=== PATIENT | male | born 1975 | race African-American/Black ===

== ENCOUNTER 2016-11-27 23:51 | Inpatient (IN) ==
[2016-11-28] MEDS ORDERED: hydrALAZINE 20 MG/1 ML VIAL IV STA (01:13)
[2016-11-28] MEDS ORDERED: NITROGLYCERIN 2% OINT 1 INCH/GM PACK TOP STA (01:13)
[2016-11-28] MEDS ORDERED: ASPIRIN 325 MG TABLET PO STA (01:13)
[2016-11-28] MEDS ORDERED: ONDANSETRON 4 MG/2 ML VIAL IV STA (01:13)
[2016-11-28] MEDS ORDERED: MORPHINE 2 MG/1 ML SYRINGE IV STA (01:13)
--- NOTE | 2016-11-28 01:44 | Emergency Department Note ---
Vanesa Conroy Gwan, am scribing for, and in the presence of, Yeison Gillis MD 01 :18. Carlin Conroy Charles R, MD, personally performed the services described in this documentation, ascribed by Denise Alexis in my presence, and it is both accurate and complete . Arrival - Arrival Chief Complaint: Extremity Problem Stated Complaint: foot pain ED Nursing Triage Note: Pt ambulatory to triage with c/o right foot pain. Mode of Arrival: Ambulatory Limitations: No Limitations Source: Patient, Old Records Reviewed, RN Notes Reviewed Time Seen by Provider: 11/28/16 00:55 - History of Present Illness HPI Narrative: Patient is a 41 y/o black male who presents to the ED with a c/o right foot pain with an onset 5 days ago. Patient then stated that today as he was working , his pain became worse. After taking Aleve with no relief, pt was prompted to report to the ED for further evaluation. His associated sxs have been numbness, tingling, burning sensation and edema to bilateral feet-more on right than on the left. Patient confirmed that he has a SHx of marijuana use and cigarettes smoking. He denies any use of Cocain, chest pain or any trauma to LE. He then said that he does not have a PCP or that he has f/u with any physician. During exam, pt showed obvious signs of pain and discomfort but no signs of distress were noted. Consistency: constant Severity: moderate Allergies/Adverse Reactions: Allergies Allergy/AdvReac Type Severity Reaction Status Date / Time lidocaine Allergy Unknown/Unable Verified 11/28/16 00:03 to obtain Home Medications: Home Medications Medication Instructions Recorded Confirmed Type No Known Home Medications [No 11/28/16 11/28/16 History Known Home Medications] Review of System - Review of System 12 point system: reviewed and no additional remarkable complaints except as stated - Review of System Constitutional: Absent: chills, fever Eyes: Absent: discharge, pain Head/Ears/Nose/Throat: Absent: earache Respiratory: Absent: cough Cardiovascular: Absent: chest pain Gastrointestinal: Absent: abdominal pain, nausea, vomiting, diarrhea Genitourinary male: Absent: urgency, dysuria Musculoskeletal: Present: as per HPI, other (pain in right foot ). Absent: arm pain, back pain Skin: Absent: rash, lesions Medical,Surgical,& Family Hx - Medical History Cardio: History of: Hypertension - Social History Smoking Status: Current every day smoker Frequency of Alcohol Use: Occasionally Type of Drug Use: Marijuana Exam Vital Signs: Vital Signs Temperature 97.9 F 11/27/16 23:57 Pulse Rate 80 11/28/16 01:40 Respiratory Rate 16 11/28/16 01:40 Blood Pressure 197/116 11/28/16 01:40 O2 Sat by Pulse Oximetry 96 11/27/16 23:57 - General General appearance: alert, in no apparent distress - Head Head exam: Present: atraumatic, normocephalic - Eye Eye exam: Present: normal appearance, PERRL, EOMI - ENT ENT exam: Present: normal oropharynx, mucous membranes moist, TM's normal bilaterally, normal external ear exam - Neck Neck exam: Present: full ROM, trachea midline. Absent: tenderness - Chest Chest inspection: Present: symmetric chest wall rise. Absent: tenderness - Respiratory Respiratory exam: Present: rales (bilateral ), rhonchi (bilateral ) - Cardiovascular Cardiovascular exam: Present: murmur (3/6 systolic injection murmur) - Extremities Exam Extremities exam: Present: other (3rd right toe is dark, cyanotic, painful and ischemic with clear temperature change; decrease pulses in bilateral feet; +1 edema noted to bilateral LE) - Back Exam Back exam: Present: full ROM. Absent: tenderness - Neurological Exam Neurological exam: Present: alert, oriented X3, CN II-XII intact. Absent: motor sensory deficit - Psychiatric Psychiatric exam: Present: normal affect, normal mood - Skin Skin exam: Present: warm, dry, intact, normal color Course - Consultations Consultation #1: Hospital will admit patient Time: 03:28 Results - Labs CBC & BMP: 11/28/16 01:41 11/28/16 01:41 Lab Results: I have reviewed the patients labs Labs: Laboratory Tests 11/28/16 11/28/16 11/28/16 01:41 01:41 01:41 WBC 9.5 RBC 4.68 Hgb 13.7 L Hct 40.5 L MCV 86.5 L Plt Count 259 [place] # (Auto) 1.1 H Sodium 141 Potassium 4.0 Chloride 108 H Carbon Dioxide 24 BUN 19 H Creatinine 1.10 Glucose 109 H AST 78 H Alkaline Phosphatase 129 H Troponin I 0.428 H Lipase 194.0 Critical Care Time Critical Care Time: Yes Total Critical Care Time: 60 Disposition Clinical Impression: Acute ischemia right third toe, Hypertensive urgency, Elevated troponin, Clubbing of the fingernails, COPD (chronic obstructive pulmonary disease), Peripheral vascular disease Case discussed with: patient Disposition: Still a Patient Condition: Guarded Time of Disposition: 03:24 Contact your physician if you experience:: fever over 101, Difficulty voiding, Redness or swelling, Nausea/Vomiting, Shortness of breath, Bleeding, pain uncontrolled by pain medications, Other Return to the Emergency Department if:: fever over 101, Difficulty voiding, Redness or swelling, Nausea/Vomiting, Shortness of breath, Bleeding, pain uncontrolled by pain medications, Other
[2016-11-28] MEDS ORDERED: NITROGLYCERIN 2% OINT 1 INCH/GM PACK TOP ONE (01:48)
[2016-11-28] MEDS ORDERED: ONDANSETRON 4 MG/2 ML VIAL ONE (01:49)
[2016-11-28] MEDS ORDERED: hydrALAZINE 20 MG/1 ML VIAL ONE (01:49)
[2016-11-28] MEDS ORDERED: ASPIRIN 325 MG TABLET ONE (01:49)
[2016-11-28] MEDS ORDERED: MORPHINE 2 MG/1 ML SYRINGE ONE (01:49)
[2016-11-28 02:00] LABS: Basophils % 0.3 % (0.0-0.8); Eosinophils # 0.2 10*3/uL (0.0-0.87); Eosinophils % 1.6 % (0.00-10.9); Hematocrit 40.5 VOL% (42.0-52.0); Hemoglobin 13.7 GM/DL (14.0-18.0); Immature Granulocytes % 0.3 %; Immature Granulocytes Absolute 0.03 #; Lymphocytes # 3.5 10*3/uL (1.4-4.0); Lymphocytes % 37.1 % (21.2-54.2); Mean Corpuscular HGB Conc 33.8 GM/DL (32-36); Mean Corpuscular Hemoglobin 29 PG (27-34); Mean Corpuscular Volume 86.5 FL (87-102); Mean Platelet Volume 9.9 FL (9.6-12.0); Monocytes # 1.1 10*3/uL (0.11-0.8); Monocytes % 11.9 % (1.7-12.7); Neutrophils # 4.6 10*3/uL (1.4-7.4); Neutrophils % 48.8 % (38.7-73.9); Platelet Count 259 T/CUMM (130-400); Red Blood Count 4.68 MC/CUMM (3.8-5.5); Red Cell Distribution Width 13.2 % (9.3-17.3); White Blood Count 9.5 T/CUMM (4-12)
[2016-11-28 02:05] LABS: PT Patient Result 10.5 SECS
[2016-11-28 02:15] LABS: Alanine Aminotransferase 42 U/L (16-61); Albumin 3.8 G/DL (3.4-5.0); Alkaline Phosphatase 129 U/L (45-117); Aspartate Amino Transferase 78 U/L (0-37); Bilirubin,Total < 0.39 MG/DL (0.2-1.0); Blood Urea Nitrogen 19 MG/DL (7-18); Calcium 8.7 MG/DL (8.5-10.1); Glucose 109 MG/DL (74-106); Magnesium 2.4 MG/DL (1.8-2.4); Osmolality,Calculated 283.3 MOS/KG (273-304); Sodium 141 MMOL/L (136-145)
--- NOTE | 2016-11-28 03:57 | Hospitalist History & Physical ---
Assessment and Plan (1) Necrotic toes Status: Acute Current Visit: Yes (2) Hypertensive urgency Status: Acute Current Visit: Yes (3) Elevated troponin Status: Acute Current Visit: Yes (4) Peripheral vascular disease Status: Acute Assessment and plan: We will admit patient our service. He will be placed on a monitored bed. I will consult cardiology and trend out his cardiac enzymes. They are mildly bumped. Going to have some as needed medication available for his blood pressure and start him on some p.o. medication. We will consult surgery for his necrotic toe. We will hold him n.p.o. for now Current Visit: Yes History of Present Illness Chief complaint: Toe pain History of present illness: Mr. Grant is a 41 year old male with past medical history significant for hypertension and medical noncompliance presents with a five-day history of fourth toe pain. Patient denies trauma. Patient reports that at times very painful. On admission to the ER patient was found to have an accelerated blood pressure. Patient complains about a numbness sensation in his foot. I was consulted to admit the patient. Home Medications Medication Instructions Recorded Confirmed Type No Known Home Medications [No 11/28/16 11/28/16 History Known Home Medications] Allergies Allergy/AdvReac Type Severity Reaction Status Date / Time lidocaine Allergy Unknown/Unable Verified 11/28/16 00:03 to obtain Medical,Surgical,& Family Hx - Medical History Cardio: History of: Hypertension - Surgical History Orthopedic Surgeries: Surgical HX of;: Orthopedic Surgery - Family History Family History: Reports;: Family Diabetes, Family Hypertension - Social History Smoking Status: Current every day smoker Frequency of Alcohol Use: Occasionally Type of Drug Use: Marijuana 12 point system: reviewed and no additional remarkable complaints except as stated Exam - Constitutional Vitals: Period Temp Pulse Resp BP Sys/Kimball Pulse Ox Last 24 Hr 97.9 F 80-90 16-18 183-197/116-123 96 General appearance: no acute distress - Head Head exam: Present: normal inspection - Eye Eye exam: Present: EOMI Pupils: Present: CELSO - ENT ENT exam: Present: normal exam - Neck Neck exam: Present: normal inspection - Respiratory Respiratory exam: Present: clear to auscultation bilaterally - Cardiovascular Cardiovascular exam: Present: systolic murmur - GI/Abdominal GI/Abdominal exam: Present: normal bowel sounds - Extremities Exam Extremities exam: Present: other (Patient's forthright toe is cyanotic. Patient has some mild edema bilaterally. Pulses seem diminished in his lower extremities) - Neurological Exam Neurological exam: Present: alert - Psychiatric Psychiatric exam: Present: normal affect - Skin Skin exam: Present: warm, dry, intact Results - Labs CBC & BMP: 11/28/16 01:41 11/28/16 01:41
[2016-11-28] MEDS ORDERED: ONDANSETRON 4 MG/2 ML VIAL IV PRN (04:03)
[2016-11-28] MEDS: SODIUM CHLORIDE 0.9% 1,000 ML IV SCH ×2 (04:54→18:14)
--- NOTE | 2016-11-28 06:36 | XRay Report ---
Referring Physician: Yeison Gillis Exam: XR chest 1V portable Date: November 28, 2016 at 1:20 AM Reason: Chest pain Comparison: None Findings: The cardiac silhouette is upper normal in size. No focal consolidation, pneumothorax or pleural effusion is identified. No acute osseous process is seen. Impression: No acute cardiopulmonary process is identified. PROCEDURE INTERPRETED AT [facility] DEPARTMENT OF RADIOLOGY Final Report Signed by: Dr. Aaliyah Draper
--- NOTE | 2016-11-28 06:39 | XRay Report ---
Referring Physician: Yeison Gillis Exam: XR right toes 3 views Date: November 28, 2016 at 1:21 AM Reason: Right toe pain Comparison: None Findings: There is irregularity of the fourth distal phalanx and soft tissue swelling at the fourth digit. This is concerning for osteomyelitis. Other considerations include an indeterminate age fracture, but osteomyelitis is favored. The remaining visualized osseous structures appear intact. Impression: There is soft tissue swelling at the fourth digit and irregularity at the fourth distal phalanx. This is concerning for osteomyelitis. Other considerations include an indeterminate age fracture. PROCEDURE INTERPRETED AT [facility] DEPARTMENT OF RADIOLOGY Final Report Signed by: Dr. Aaliyah Draper
[2016-11-28 07:39] LABS: Basophils % 0.4 % (0.0-0.8); Eosinophils # 0.2 10*3/uL (0.0-0.87); Eosinophils % 2.1 % (0.00-10.9); Hemoglobin 14.5 GM/DL (14.0-18.0); Immature Granulocytes % 0.4 %; Immature Granulocytes Absolute 0.04 #; Lymphocytes # 4.3 10*3/uL (1.4-4.0); Lymphocytes % 40.5 % (21.2-54.2); Mean Corpuscular HGB Conc 33.7 GM/DL (32-36); Mean Corpuscular Hemoglobin 29 PG (27-34); Mean Corpuscular Volume 86.9 FL (87-102); Mean Platelet Volume 10.9 FL (9.6-12.0); Monocytes # 1.1 10*3/uL (0.11-0.8); Monocytes % 10.7 % (1.7-12.7); Neutrophils # 4.9 10*3/uL (1.4-7.4); Neutrophils % 45.9 % (38.7-73.9); Platelet Count 291 T/CUMM (130-400); Red Blood Count 4.95 MC/CUMM (3.8-5.5); Red Cell Distribution Width 13.2 % (9.3-17.3); White Blood Count 10.6 T/CUMM (4-12)
[2016-11-28 08:02] LABS: Burr Cells 2+; Hypochromasia 1+; Lymphocytes 55 % (20-55); Platelet Estimate Adequate; Segmented Neutrophils 35 % (50-85); Total Cells Counted 100
[2016-11-28 08:24] LABS: Alanine Aminotransferase 33 U/L (16-61); Albumin 3.5 G/DL (3.4-5.0); Alkaline Phosphatase 116 U/L (45-117); Aspartate Amino Transferase 64 U/L (0-37); Bilirubin,Total < 0.39 MG/DL (0.2-1.0); Calcium 8.1 MG/DL (8.5-10.1); Total Protein 6.3 G/DL (6.4-8.3)
[2016-11-28 08:25] LABS: Blood Urea Nitrogen 13 MG/DL (7-18); Glucose 100 MG/DL (74-106); Osmolality,Calculated 278.4 MOS/KG (273-304); Potassium 3.9 MMOL/L (3.5-5.1); Sodium 140 MMOL/L (136-145)
--- NOTE | 2016-11-28 08:55 | EKG Report ---
Stationary ECG Study [facility] ER Test Date: 11/28/2016 4:19:41 AM Pat Name: ARBEN DAY Department: Room: 545 Gender: M Data Solutions Architect: VINCENT : 1975 Requested by: Yeison Calle Order Number: [id number] Reading MD: ISABELLA FRAUSTO Intervals [place] Rate: 79 P: 60 AK: 154 QRS: -16 QRSD: 114 T: 208 QT: 424 QTc: 458 Interpretive Statements SINUS RHYTHM MODERATE INTRAVENTRICULAR CONDUCTION DELAY Repol changes suggestive of myocardial injury, recent Electronically Signed On 11-30-16 15:37:12 CDT by ISABELLA FRAUSTO [email or web address]
--- NOTE | 2016-11-28 09:10 | EKG Report ---
Stationary ECG Study [facility] Test Date: 11/28/2016 9:09:16 AM Pat Name: ARBEN DAY Department: Room: 545 Gender: M Behavioral Health Clinician: : 1975 Requested by: Yeison Calle Order Number: [id number] Reading MD: ISABELLA FRAUSTO Intervals [place] Rate: 73 P: 64 VT: 157 QRS: 24 QRSD: 95 T: 247 QT: 443 QTc: 469 Interpretive Statements SINUS RHYTHM MARKED T-WAVE ABNORMALITY, CONSIDER LATERAL ISCHEMIA MARKED T-WAVE ABNORMALITY, CONSIDER INFERIOR ISCHEMIA Electronically Signed On 11-30-16 15:54:42 CDT by ISABELLA FRAUSTO [email or web address]
[2016-11-28] MEDS: PANTOPRAZOLE 40 MG TABLET PO SCH (09:13)
[2016-11-28] MEDS: amLODIPine 5 MG TABLET PO SCH (09:13)
[2016-11-28 11:38] LABS: CKMB % 0.4 %; Troponin I Only 0.35 NG/ML (0.00-0.045)
[2016-11-28] MEDS: MORPHINE 2 MG/1 ML SYRINGE IV PRN ×2 (12:10→23:21)
--- NOTE | 2016-11-28 12:14 | General Surgery Consult Note ---
Assessment and Plan - Time spent with patient Time spent with patient: Less than 30 minutes (1) Necrotic toes Status: Acute Assessment and plan: This toe appears viable. I would be worried about blue toe syndrome with emboli from peripheral vascular disease upstream or possibly cardiac emboli. I would recommend an aortofemoral arteriogram and also a cardiac echo. I will check today to see if we can get an arteriogram. His creatinine is normal. Current Visit: Yes History of Present Illness Chief complaint: Painful right fourth toe History of present illness: Mr. Grant is a 41 year old male Who 5 days ago developed sudden onset of pain in his right fourth toe and forefoot. His pain is mostly localized to the toe itself. He has not had any redness or swelling or fever. This is worse if it is touched or if he tries to walk on it. Feels better if he lays still. He has never had claudication before. He is unaware of any history of peripheral vascular disease or embolic phenomena. Home Medications Medication Instructions Recorded Confirmed Type No Known Home Medications [No 11/28/16 11/28/16 History Known Home Medications] Allergies Allergy/AdvReac Type Severity Reaction Status Date / Time lidocaine Allergy Unknown/Unable Verified 11/28/16 00:03 to obtain Medical,Surgical,& Family Hx - Medical History Cardio: History of: Hypertension - Surgical History Orthopedic Surgeries: Surgical HX of;: Orthopedic Surgery (1988) - Family History Family History: Reports;: Family Diabetes, Family Hypertension - Social History Smoking Status: Current every day smoker Frequency of Alcohol Use: Occasionally Type of Drug Use: Marijuana - Constitutional Constitutional: Absent: anorexia, chills, fever(s), weight loss - Cardiovascular Cardiovascular: Absent: chest pain at rest, chest pain with activity, dyspnea, dyspnea on exertion, syncope - Respiratory Respiratory: Absent: dyspnea, hemoptysis, dyspnea on exertion - Gastrointestinal Gastrointestinal: Absent: abdominal pain, hematemesis, hematochezia, nausea, vomiting, jaundice - Genitourinary Genitourinary: Absent: hematuria - Musculoskeletal Musculoskeletal: Absent: back pain - Neurological Neurological: Absent: focal weakness, syncope - Endocrine Endocrine: Absent: polyuria Hematologic/Lymphatic: Absent: easy bruising Exam - Constitutional Vitals: Period Temp Pulse Resp BP Sys/Kimball Pulse Ox Last 24 Hr 97.9 F-98.2 F 66-90 16-18 137-197/83-123 96-99 General appearance: no acute distress - Head Head exam: Present: normocephalic - Eye Eye exam: Absent: scleral icterus - ENT Mouth exam: Present: normal voice - Neck Neck exam: Present: trachea midline. Absent: tenderness - Respiratory Respiratory exam: Present: clear to auscultation bilaterally. Absent: accessory muscle use - Cardiovascular Cardiovascular exam: Present: RRR - GI/Abdominal GI/Abdominal exam: Present: soft, other (No abdominal bruit). Absent: distended , mass, tenderness, rebound - Extremities Exam Extremities exam: Present: normal inspection, other (There is some cyanosis and edema of the right fourth toe. There is no obvious trauma or erythema or obvious infection. Some of this tenderness extends into the forefoot proximal to the toe.). Absent: calf tenderness, edema - Back Exam Back exam: Absent: CVA tenderness (L), CVA tenderness (R) - Neurological Exam Neurological exam: Present: alert, oriented X3. Absent: motor sensory deficit Speech: Present: normal - Skin Skin exam: Present: normal color Results - Labs CBC & BMP: 11/28/16 04:33 11/28/16 07:50 Lab Results: I have reviewed the past 24 hour labs
--- NOTE | 2016-11-28 13:53 | CT Report ---
Exam: CT angio abdomen/femoral Date: 11/28/2016 Comparison: None Indication: Peripheral vascular disease with blue toe right fourth digit Technical: Images were obtained from the lung bases through the iliac crest continuation through the abdomen/ pelvis to the toes with sagittal axial and coronal imaging available for review. 3-D Maximal intensity reproduction images are available for review. 125 cc of Omnipaque 350 were utilized.Dose reduction was performed with decreasing kv and mA and automated exposure Total DLP: 898.4 mGy*cm Findings: CT angiogram: Abdomen/pelvis. The distal thoracic aorta is unremarkable. The abdominal aorta reveals patency of the celiac hepatic and splenic artery. The SMA is intact. The renal arteries are patent bilaterally. There are inferior mesenteric arteries patent. No obvious aneurysm with mild luminal fibrofatty plaque present in the distal aorta. The right common iliac reveals atherosclerotic plaque without significant stenosis. The left common iliac reveals atherosclerotic plaque with approximately 50% narrowing of the left common iliac artery. The left and right external iliac arteries are patent. The internal iliac arteries reveal mild plaque. Right lower extremity: The right common femoral profundus femoris arteries are patent. The right SFA reveals approximately 50% narrowing in the proximal origin of the right SFA. The exam reveals some luminal irregularity irregularities in the distal SFA had. There is a complete occlusion of the popliteal artery with collateral blood flow minimally present through the geniculate vessels. The anterior tibial artery is reconstituted to supply the dorsalis pedis artery. Peroneal artery is intact the posterior tibial artery is small but patent to the medial plantar branch of the foot. Left lower extremity: The left common femoral artery is intact. The profundus femoris artery is patent. The left SFA is occluded with reconstitution at the level of the adductor canal. The popliteal artery is occluded. There is some collateral blood flow through geniculate vessels to reconstitute the tibioperoneal trunk with patency of the anterior tibial artery with some luminal irregularities with patent dorsalis pedis artery. The peroneal artery is small but patent and the posterior tibial artery has some skip lesions present. The medial plantar branch the foot is patent. Soft tissue analysis: Lung bases: No obvious infiltrate or effusion present with pleural thickening in the right lung base. Liver and Spleen: Unremarkable Gallbladder and Pancreas: Unremarkable Adrenals: Unremarkable Kidneys: Both kidneys are equally perfused and demonstrate no evidence for obstructive uropathy. Stomach: Incomplete distended with air-fluid and debris Retroperitoneum: No enlarged lymph nodes. IVC appears unremarkable Bowel and Mesentery: Moderate stool and debris present. A few diverticular changes are present without evidence of diverticulitis. Pelvis: Bladder: Incompletely distended with fluid Fluid: No free fluid identified. Lymph nodes: Small shotty nodes in the inguinal regions bilaterally Pelvic organs: Unremarkable Osseous structures: Old injury of the left femoral neck present with the defect with old fracture of the left femur and some old metallic screws present x3 in the left femur. Impression: 1. 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 2. Complete occlusion of the left SFA proximally with reconstitution at the adductor canal with occlusion of the left popliteal artery also present with skip lesions in the posterior tibial artery with a skip lesion also present in the anterior and peroneal artery 3. Moderate luminal irregularities in the aorta with approximately 50% narrowing of the left common iliac artery with mild irregularities in the internal iliac arteries bilaterally 4. Approximately 50% narrowing of the proximal right SFA common femoral artery junction 5. Previous fracture of the left hip and femur with 3 small cannulated screws in the femur midshaft. Findings discussed with Dr. Wright III PROCEDURE INTERPRETED AT [facility] DEPARTMENT OF RADIOLOGY Final Report Signed by: Dr. Jeb Smalls
--- NOTE | 2016-11-28 14:54 | Vascular Surgery Consult Note ---
History of Present Illness Chief complaint: ischemic, infected right 4th toe History of present illness: Mr. Grant is a 41 year old male Mr. Grant a 41-year-old man admitted with an acutely painful swollen right fourth toe with pain spreading into the third and fifth toes. He states this became much worse approximately 5 days ago and then 2 days ago it required his attention coming to the emergency room. He has a long history of cigarette smoking he has a past history in the of some type of cartilage and tendon repair on the right knee and a past history of sounds like a DVT in the right calf. However he has been able to walk and get along without a great deal of claudication he does have cramping that occurs more at night and during the day. He does not give a history of any other major medical problems and apparently does not see a physician on a regular basis. He was admitted underwent CT angiography which is significant showing a totally occluded right popliteal to the trifurcation with reconstitution of anterior tibial into the dorsalis pedis a small posterior tibial region dating lower in the leg that goes to the plantar arch. Significantly on the left side he has totally occluded left superficial femoral and popliteal and worse tibial vessels. X-ray of his foot shows absorption breakdown of the distal phalanx of the right fourth toe which is the most symptomatic and suggest possibility of osteomyelitis. On my examination he clearly has a dark but very swollen right fourth toe that is acutely tender as is the surrounding toes and metatarsal area but the upper part of the foot is not as tender notably perfusion seems to be about as good on the right as on the left other than the fourth toe. At this point, Mr. Grant clearly has peripheral vascular disease that is significant not convinced that that is the primary source of his discomfort with the fourth toe. I am concerned that infection is the primary problem although another possibility could be gout. I discussed this with Dr. Wright III I think it would be appropriate to drain the fourth toe but the patient is just eaten today he has not been on antibiotics yet so I will make him n.p.o. after midnight will start vancomycin I will also check a urate level. I did explain to the patient with his present that the continued use of cigarettes is the worst possible thing he can do as far as his peripheral vascular disease is concerned and must be made a priority for him going forward to stop the use of cigarettes Home Medications Medication Instructions Recorded Confirmed Type No Known Home Medications [No 11/28/16 11/28/16 History Known Home Medications] Allergies Allergy/AdvReac Type Severity Reaction Status Date / Time lidocaine Allergy Unknown/Unable Verified 11/28/16 00:03 to obtain Medical,Surgical,& Family Hx - Medical History Cardio: History of: Hypertension - Surgical History Orthopedic Surgeries: Surgical HX of;: Orthopedic Surgery (1988) - Family History Family History: Reports;: Family Diabetes, Family Hypertension - Social History Smoking Status: Current every day smoker Frequency of Alcohol Use: Occasionally Type of Drug Use: Marijuana Exam - Constitutional Vitals: Period Temp Pulse Resp BP Sys/Kimball Pulse Ox Last 24 Hr 97.9 F-98.2 F 66-90 16-18 137-197/83-123 96-99 Results - Labs CBC & BMP: 11/28/16 04:33 11/28/16 07:50
--- NOTE | 2016-11-28 15:34 | Hospitalist Progress Note ---
Assessment and Plan (1) Osteomyelitis Status: Acute Assessment and plan: Suspicion of osteomyelitis of the distal phalanx of the right fourth toe. This shows resumption. Differential diagnoses includes gouty arthritis. I will check uric acid because of this. She had been started on vancomycin Current Visit: Yes (2) Hypertensive urgency Status: Acute Assessment and plan: Blood pressure is now better controlled. Quite high in the emergency room. Current Visit: Yes (3) Peripheral vascular disease Status: Chronic Assessment and plan: Vascular surgery has left a note on the chart.. Nothing can be done for him at this point given the nature of his arterial occlusion and lower extremities Current Visit: Yes (4) Necrotic toes Status: Acute Assessment and plan: General surgery look with the patient again tomorrow Current Visit: Yes Hospitalist: Subjective Interval history: Patient is seen interviewed and examined and chart has been reviewed. Adrienne was admitted area this morning by my colleagues. Admitted with hospital with progressive pain in the fourth toe. On the right foot. States that she started about 5 days ago. Patient has profound PAD involving both lower extremity also on the left than the right. He has been consulted to general surgery and also to vascular surgery because of suspicion for possibility of atheroembolic event. CT of the lower extremity has been done. This demonstrated significant PAD. Discussed surgery is osteopenia and that is not possible for this to be on cholesterol emboli it may be loss of collaterals with ischemia in that area but there is strong suspicion that this is an infection there is resumption of the distal phalanx of fourth toe. Gouty arthritis cannot be excluded. Because of suspicion of infection patient will be started on vancomycin. Surgery will evaluate the patient again tomorrow hospital incision and drainage. Exam - Constitutional Vitals: Period Temp Pulse Resp BP Sys/Kimball Pulse Ox Last 24 Hr 97.9 F-98.2 F 66-90 16-18 137-197/83-123 96-99 General appearance: normal weight - Head Head exam: Present: normal inspection, normocephalic - Eye Eye exam: Present: EOMI Pupils: Present: CELSO - ENT ENT exam: Present: normal exam - Neck Neck exam: Present: normal inspection - Respiratory Respiratory exam: Present: clear to auscultation bilaterally - Cardiovascular Cardiovascular exam: Present: regular rate and rhythm - GI/Abdominal GI/Abdominal exam: Present: normal bowel sounds - Extremities Exam Extremities exam: Present: full ROM, other (Very tender dorsum of the right foot very tender fourth toe which is dusky and swollen.) - Back Exam Back exam: Present: normal inspection - Neurological Exam Neurological exam: Present: alert, oriented X3, CN II-XII intact - Psychiatric Psychiatric exam: Present: normal affect, normal mood - Skin Skin exam: Present: normal color, warm, dry Results - Labs CBC & BMP: 11/28/16 04:33 11/28/16 07:50 Lab Results: I have reviewed the past 24 hour labs (Check uric acid)
[2016-11-28] MEDS: ENOXAPARIN 40 MG/0.4 ML SYRINGE SUBCUT SCH (16:17)
[2016-11-28] MEDS: VANCOMYCIN INJ 1,500 MG in SODIUM CHLORIDE 0.9% 500 ML IV SCH (16:18)
--- NOTE | 2016-11-28 21:00 | Cardiology Consult Note ---
Champ Conroy Vanessa, RN, am scribing for, and in the presence of, Cody Dial MD 20:59. Assessment and Plan - Time spent with patient Time spent with patient: Greater than 30 minutes (Due to assessment, planning, document addition, and medication review) (1) Troponin I above reference range Status: Acute Assessment and plan: SEE PLAN OF CARE LISTED BELOW. Current Visit: Yes (2) Hypertensive urgency Status: Acute Assessment and plan: SEE PLAN OF CARE LISTED BELOW. Current Visit: Yes (3) COPD (chronic obstructive pulmonary disease) Status: Chronic Assessment and plan: SEE PLAN OF CARE LISTED BELOW. Current Visit: Yes (4) Necrotic toes Status: Acute Assessment and plan: SEE PLAN OF CARE LISTED BELOW. Current Visit: Yes (5) Peripheral vascular disease Status: Chronic Assessment and plan: SEE PLAN OF CARE LISTED BELOW. 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 CODY DIAL ([facility]) PCP: NONE CARDIOLOGY CONSULT NOTE: ABNORMAL TROPONIN MEASUREMENT, PVD, RIGHT LOWER EXTREMITY ISCHEMIA Mr. Grant is a 41 year old black male with risk factors significant for hypertension, family history of coronary artery disease, tobacco abuse. He has never had formal cardiac evaluation. Patient does not routinely take medication for hypertension, but he did present this admission with hypertensive urgency, BP 183/123. There is no documented past medical history, and patient denies knowledge with the exception of "heart murmur in childhood" and DVT of the right leg 4 years ago for which he took Coumadin for 4 months. Family history positive for father with hypertension, paternal grandfather who at age 50 from heart attack and paternal uncle who at age 70 from heart attack. Social history includes smoking one half pack per day cigarettes for approximately 29 years, admits to smoking marijuana 5-6 times per month, and reports that he drinks approximately a six pack of beer weekly. Patient presented to [place]'s ED overnight on November 28 complaining of pain in his right foot onset 5 days prior. He does carpentry work for a living, and he reports that as he went on through the day, his pain became worse and was unrelieved after taking NSAIDs. He had associated numbness, tingling, and burning sensation with some bilateral pedal edema greater on the right than the left. He denied any recent trauma to the lower extremities. He was experiencing a significant amount of pain. Right third toe found to be ischemic , and there are peripheral vascular changes to bilateral lower extremities. Patient was admitted to [facility] [place] via [facility] for further observation and treatment. Cardiology is consulted for further evaluation of troponin level 2 0.428 and 0.360. The patient acknowledges that he believed he was having a heart attack 2 nights ago when he had severe chest pain. This awoke him from his sleep. He cannot describe the duration. There did not appear to have been any associated symptoms, no clear triggers or alleviators. He may have been short of breath with this episode as well. He had recurrent chest pain denied he presented to the emergency room, but he describes this as an entire body cramping on that side of his whole body that included his chest. He was able to perform carpentry work after the more severe episode 2 nights ago. We discussed his history of medication noncompliance. Apparently, when he was treating his hypertension with lisinopril, he read and inserted said his medicine was not "for black people", so he stopped this. He says he improved his eating so he did not return for further follow-up. He did not continue to check his blood pressure. He really has not had any contraindication to any medications or side effects from them. He tells me he would be agreeable to taking medications at this point if prescribed. Chest x-ray showed no acute cardiopulmonary process and no significant cardiomegaly, but during physical exam patient is noted to have significant clubbing of fingers, suggestive of COPD. EKG with mild ST depression inferiorly , T-wave inversion inferolaterally. Troponin level still remained flat, BNP not elevated. Blood pressure did remain elevated through the night as high as 197/116. This morning, it is improved to 137/84. Pulse rate 70s-80s and regular. Creatinine is 0.9 with GFR of 157. Upon exam and interview, patient is resting in bed quietly in no acute distress. Denies recent or current orthopnea, PND, palpitations. ASSESSMENT/PLAN: 1. ABNORMAL TROPONIN -this could represent residual abnormality from an event that occurred 2 nights ago when he had severe chest pain. It could also represent mild RV strain from a possible pulmonary embolism since he has a history of DVTs. We will check an echocardiogram, CT scan of the chest to rule out PE. At some point he may require cardiac catheterization if he can confirm intention for medication compliance. In the meanwhile we will medically optimize him. He is agreeable to taking antihypertensives at this point. He may require urgent surgery to debride his toe, and that urgent surgery does not necessarily need to be postponed because of his cardiac condition given his clinical scenario. 2. ABNORMAL EKG 3. HYPERTENSIVE URGENCY 5. TOBACCO ABUSE 6. PERIPHERAL VASCULAR DISEASE CC: Dallas Mejía MD - Home Medications and Allergies Home Medications: Home Medications Medication Instructions Recorded Confirmed Type No Known Home Medications [No 11/28/16 11/28/16 History Known Home Medications] Allergies/Adverse Reactions: Allergies Allergy/AdvReac Type Severity Reaction Status Date / Time lidocaine Allergy Unknown/Unable Verified 11/28/16 00:03 to obtain - Constitutional Constitutional: Present: as per HPI - EENT Eyes: Present: as per HPI Nose, mouth and throat: Present: as per HPI - Cardiovascular Cardiovascular: Present: as per HPI - Respiratory Respiratory: Present: as per HPI - Gastrointestinal Gastrointestinal: Present: as per HPI - Genitourinary Genitourinary: Present: as per HPI - Musculoskeletal Musculoskeletal: Present: as per HPI - Neurological Neurological: Present: as per HPI - Psychiatric Psychiatric: Present: as per HPI - Endocrine Endocrine: Present: as per HPI - Hematologic/Lymphatic Hematologic/Lymphatic: Present: as per HPI Medical,Surgical,& Family Hx - Medical History Cardio: History of: Hypertension No history of: CHF, CAD, [place], Pacemaker Psychological: No history of: Anxiety Disorders, Depression Neurology: No history of: Seizures, TIA Endocrine: No history of: Diabetes Mellitus (IDDM), Diabetes Mellitus (NIDDM), Dyslipidemia, Thyroid Disorder Rheumatology: No history of;: Gout Respiratory: No history of: Obstructive Sleep Apnea, Pulmonary Hypertension Renal: No history of: Renal Problems Genitourinary: No history of: Bladder Problem, Kidney Stones Gastrointestinal: No history of: GERD, Gastrointestinal Bleed Musculoskeletal: No history of: Amputation, Degenerative Disk Disease Hematology: History of: Clotting Problems (DVT right leg) No history of: Anemia, Bleeding Problems Other: No history of: Cancer, HIV - Surgical History Cardiac Surgeries: Patient Denies: Femoral-Popliteal Bypass Graft, Cardiac Surgery HEENT Surgeries: Patient denies: Carotid Endarterectomy Abdominal Surgeries: Patient denies: Colonoscopy, EGD Orthopedic Surgeries: Surgical HX of;: Orthopedic Surgery (1988) - Family History Family History: Reports;: Family Diabetes, Family Heart Disease, Family Hypertension, Family Stroke - Social History Smoking Status: Current every day smoker Frequency of Alcohol Use: Occasionally Type of Drug Use: Marijuana Functional capacity: independent ambulation Physical Examination Vital Signs Temp Pulse Resp BP Pulse Ox 97.9 F 90 18 183/123 96 11/27/16 23:57 11/27/16 23:57 11/27/16 23:57 11/27/16 23:57 11/27/16 23:57 Other: General appearance: normal weight, no acute distress - Head Head exam: Present: normal inspection, normocephalic, atraumatic. Absent: hematoma, laceration - Eye Eye exam: Present: EOMI. Absent: conjunctival injection, nystagmus, periorbital swelling, scleral icterus, laceration to eyelids Pupils: Present: PERRL. Absent: constricted, dilated, fixed, irregular, unequal - ENT ENT exam: Present: normal exam, normal external ear exam - Neck Neck exam: Present: normal inspection. Absent: lymphadenopathy, meningismus, tenderness, thyromegaly - Respiratory Respiratory exam: Present: clear to auscultation bilaterally. Absent: accessory muscle use, chest wall tenderness - Cardiovascular Cardiovascular exam: Present: regular rate and rhythm. Absent: carotid bruit, gallop, JVD, rubs - GI/Abdominal GI/Abdominal exam: Present: normal bowel sounds, soft. Absent: distended, firm , guarding, hernia, mass, tenderness, rebound. - Extremities Exam Extremities exam: Present: Digital clubbing, decreased pulses in the bilateral lower extremities, very mild edema of the bilateral feet, worse with the right- sided toes, exquisite tenderness on this foot - Back Exam Back exam: Present: normal inspection. Absent: muscle spasm, vertebral tenderness - Neurological Exam Neurological exam: Present: alert, oriented X3, grossly intact without resting or intention tremor - Psychiatric Psychiatric exam: Present: normal affect, normal mood - Skin Skin exam: Present:warm, dry, intact. Absent: rash, urticaria Result/EKG - Labs CBC & BMP: 11/28/16 04:33 11/28/16 07:50 Lab Results: I have reviewed the past 24 hour labs Labs: Laboratory Results - last 24 hr 11/28/16 11/28/16 11/28/16 01:41 01:41 01:41 WBC RBC Hgb Hct MCV MCH MCHC RDW Plt Count MPV Neut % (Auto) Lymph % (Auto) Hutchinson % (Auto) Eos % (Auto) Baso % (Auto) Neut # (Auto) Lymph # (Auto) Hutchinson # (Auto) Eos # (Auto) Baso # (Auto) Total Counted Immature Gran % Nucleated RBC % Immature Gran # Segmented Neutrophils Lymphocytes Monocytes Nucleated RBCs # Platelet Estimate Hypochromasia Evan Cells INR 1.0 PT Patient/Control Mix 10.5 Sodium 141 Potassium 4.0 Chloride 108 H Carbon Dioxide 24 Anion Gap 13.0 BUN 19 H Creatinine 1.10 GFR Calculation 125 BUN/Creatinine Ratio 17.00 Glucose 109 H Calculated Osmolality 283.3 Calcium 8.7 Magnesium 2.4 Total Bilirubin < 0.39 AST 78 H ALT 42 Alkaline Phosphatase 129 H Troponin I B-Natriuretic Peptide 99 Total Protein 7.0 Albumin 3.8 Globulin 3.2 Albumin/Globulin Ratio 1.1 Lipase 194.0 11/28/16 11/28/16 11/28/16 01:41 01:41 04:33 WBC 9.5 10.6 RBC 4.68 4.95 Hgb 13.7 L 14.5 Hct 40.5 L 43.0 MCV 86.5 L 86.9 L MCH 29 29 MCHC 33.8 33.7 RDW 13.2 13.2 Plt Count 259 291 MPV 9.9 10.9 Neut % (Auto) 48.8 45.9 Lymph % (Auto) 37.1 40.5 Hutchinson % (Auto) 11.9 10.7 Eos % (Auto) 1.6 2.1 Baso % (Auto) 0.3 0.4 Neut # (Auto) 4.6 4.9 Lymph # (Auto) 3.5 4.3 H Hutchinson # (Auto) 1.1 H 1.1 H Eos # (Auto) 0.2 0.2 Baso # (Auto) 0.0 0.0 Total Counted 100 Immature Gran % 0.3 0.4 Nucleated RBC % 0.0 0.0 Immature Gran # 0.03 0.04 Segmented Neutrophils 35 L Lymphocytes 55 Monocytes 10 Nucleated RBCs # 0.00 0.00 Platelet Estimate Adequate Hypochromasia 1+ Royal Cells 2+ INR PT Patient/Control Mix Sodium Potassium Chloride Carbon Dioxide Anion Gap BUN Creatinine GFR Calculation BUN/Creatinine Ratio Glucose Calculated Osmolality Calcium Magnesium Total Bilirubin AST ALT Alkaline Phosphatase Troponin I 0.428 H B-Natriuretic Peptide Total Protein Albumin Globulin Albumin/Globulin Ratio Lipase 11/28/16 11/28/16 11/28/16 04:35 07:50 07:59 WBC RBC Hgb Hct MCV MCH MCHC RDW Plt Count MPV Neut % (Auto) Lymph % (Auto) Hutchinson % (Auto) Eos % (Auto) Baso % (Auto) Neut # (Auto) Lymph # (Auto) Hutchinson # (Auto) Eos # (Auto) Baso # (Auto) Total Counted Immature Gran % Nucleated RBC % Immature Gran # Segmented Neutrophils Lymphocytes Monocytes Nucleated RBCs # Platelet Estimate Hypochromasia Evan Cells INR PT Patient/Control Mix Sodium 140 Potassium 3.9 Chloride 110 H Carbon Dioxide 22 Anion Gap 11.9 BUN 13 Creatinine 0.90 GFR Calculation 157 BUN/Creatinine Ratio 14.00 Glucose 100 Calculated Osmolality 278.4 Calcium 8.1 L Magnesium Total Bilirubin < 0.39 AST 64 H ALT 33 Alkaline Phosphatase 116 Troponin I 0.448 H 0.360 H B-Natriuretic Peptide Total Protein 6.3 L Albumin 3.5 Globulin 2.8 Albumin/Globulin Ratio 1.2 Lipase - Diagnostic Findings Procedure: Chest x-ray: image reviewed by me, report reviewed by me - EKG EKG results: interpreted by me EKG shows: sinus rhythm Jayro Conroy Jennifer, MD, personally performed the services described in this documentation, ascribed by Annette Oakes RN in my presence, and it is both accurate and complete .
[2016-11-28] MEDS: ZALEPLON 5 MG CAPSULE PO PRN (22:02)
--- NOTE | 2016-11-28 22:06 | CT Report ---
History: Chest pain. History of DVT Date: 11/28/2016 Study: CT chest with IV contrast with pulmonary embolus technique Comparison exam: No previous similar Spiral CT sections were obtained through the lungs following the IV administration of 80 mL of Omnipaque 350 without immediate complication. Multiplanar reconstruction images are also evaluated. The CT exam was performed using one or more of the following dose reduction techniques: Automated exposure control, adjustment of the mA and/or kV according to patient size, or use of iterative reconstruction technique. There is no discrete filling defect within the pulmonary arterial tree to suggest acute pulmonary embolic disease. There is no thoracic aortic aneurysm or dissection. 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 There is no pleural or pericardial effusion. There is no discrete pulmonary mass or confluent pulmonary infiltrate. There are some changes of paraseptal emphysema in the upper lung zones, right more than left. There is some mild AP window and subcarinal lymphadenopathy with lymph nodes measuring 15 mm short axis diameter. The partially visualized upper abdomen is unremarkable. 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 Jodi Toribio
[2016-11-28] MEDS: hydrALAZINE 20 MG/1 ML VIAL IV PRN (23:21)
[2016-11-29] MEDS: VANCOMYCIN INJ 1,500 MG in SODIUM CHLORIDE 0.9% 500 ML IV SCH ×2 (03:30→15:21)
[2016-11-29 06:51] LABS: Magnesium 2.5 MG/DL (1.8-2.4); Osmolality,Calculated 279.3 MOS/KG (273-304); Potassium 4.4 MMOL/L (3.5-5.1); Uric Acid 5.9 MG/DL (3.5-7.2)
[2016-11-29] MEDS: PANTOPRAZOLE 40 MG TABLET PO SCH (08:28)
[2016-11-29] MEDS: amLODIPine 5 MG TABLET PO SCH ×2 (08:28→09:53)
[2016-11-29] MEDS: SODIUM CHLORIDE 0.9% 1,000 ML IV SCH (08:28)
[2016-11-29] MEDS: MORPHINE 2 MG/1 ML SYRINGE IV PRN (08:33)
--- NOTE | 2016-11-29 09:21 | General Surgery Progress Note ---
Assessment and Plan (1) Necrotic toes Status: Acute Assessment and plan: This toe appears viable. I would be worried about blue toe syndrome with emboli from peripheral vascular disease upstream or possibly cardiac emboli. I would recommend an aortofemoral arteriogram and also a cardiac echo. I will check today to see if we can get an arteriogram. His creatinine is normal. 11/29: I discussed this case with Dr. Gil and he is raised the question of whether or not there is infection in this toe. It is unclear on exam whether this is infectious or ischemic. I have offered exploration of the toe to see if there is any pus to drain. This toe may not be viable anyway. Discussed the possibility of amputation as well. Patient is agreeable to amputation if I feel that it is necessary intraoperatively. I have seen that he has a ventricular aneurysm on CT scan and I will discuss this with cardiology. I would question whether this could be a source of emboli. I would think with an occluded popliteal artery that it would be difficult to embolize to his toe though us this could be a possibility. I think that it is important that we remove the possibility of infection out of the picture especially if he is going to require a bypass procedure and possibly placement of prosthetic material. The procedure risks were discussed with the patient and he wishes to proceed. Current Visit: Yes Subjective Patient reports: Present: still having pain. Absent: nausea, vomiting, fever Exam - Constitutional Vitals: Period Temp Pulse Resp BP Sys/Kimball Pulse Ox Last 24 Hr 97.8 F-98.9 F 66-87 17-19 141-160/54-109 99-100 General appearance: no acute distress - Head Head exam: Present: normocephalic - Eye Eye exam: Absent: scleral icterus - Respiratory Respiratory exam: Absent: accessory muscle use - Extremities Exam Extremities exam: Present: other (His right fourth toe is edematous and exquisitely tender. There is no crepitus.). Absent: edema Results - Labs CBC & BMP: 11/28/16 04:33 11/29/16 05:22 Lab Results: I have reviewed the past 24 hour labs - Diagnostic Findings Procedure: CT - chest: image reviewed by me, report reviewed by me
[2016-11-29] MEDS ORDERED: LABETALOL 100 MG/20 ML VIAL IV ONE (10:55)
[2016-11-29] MEDS ORDERED: KETOROLAC 30 MG/1 ML VIAL ONE (10:55)
[2016-11-29] MEDS ORDERED: ONDANSETRON 4 MG/2 ML VIAL ONE ×2 (10:55→12:05)
[2016-11-29] MEDS ORDERED: PROPOFOL 200 MG/20 ML VIAL IV ONE (10:55)
--- NOTE | 2016-11-29 11:27 | Operative Note ---
Date of procedure: 11/29/16 Pre-op diagnosis: Abscess right fourth toe Post-op diagnosis: same Procedure: Incision and drainage of abscess right fourth toe Findings and technique: After informed consent was obtained the patient was brought to the operating room and placed in supine position. After IV sedation was administered plain lidocaine was administered. Patient had listed an allergy to lidocaine upon questioning this sounded like a response from epinephrine and lidocaine with dental procedures. This was injected proximal to the toe and a transverse incision made over an area of fluctuance at the dorsal aspect of the toe. There was purulent fluid and this appeared to be limited to the subcutaneous space. This was over the IP joint but I could not see evidence any evidence of extension into the IP joint or obvious osteomyelitis at this point. This was irrigated and packed open with iodoform gauze. The patient wanted to avoid an amputation if possible. It is unclear if this time was salvageable without amputation. We will discuss this further postoperatively. At this point however this should help control any potential infection. His x-ray is indeterminate regarding osteomyelitis but this is suggestive of osteomyelitis in the distal phalanx Anesthesia: MAC, local Surgeon / Physician: Oziel Wright III. Estimated blood loss: minimal Specimens: other (Cultures) Condition: stable Disposition: PACU Results - Labs CBC & BMP: 11/28/16 04:33 11/29/16 05:22 Discharge Plan - Discharge Medications No Action No Known Home Medications [No Known Home Medications] - Follow Up or Referral - Forms/Instructions
--- NOTE | 2016-11-29 11:31 | Anesthesia Post-Op ---
Anesthesia Post OP - Post Ansesthetic Evaluation Patient seen in post op: Yes Resp: within normal limits CV: within normal limits Mental: within normal limits Temp: within normal limits [id number]: within normal limits Nausea and Vomiting: within normal limits Pain: within normal limits
[2016-11-29] MEDS ORDERED: fentaNYL 100 MCG/2 ML VIAL ONE (11:40)
[2016-11-29] MEDS ORDERED: MIDAZOLAM 2 MG/2 ML VIAL ONE ×2 (11:40)
--- NOTE | 2016-11-29 11:48 | Hospitalist Progress Note ---
Assessment and Plan - Time spent with patient Time spent with patient: Less than 30 minutes (1) Hypertensive urgency Status: Acute Assessment and plan: Blood pressures fairly well controlled. Continue current medical regimen. Current Visit: Yes (2) Elevated troponin Status: Acute Assessment and plan: Patient been evaluated by cardiology. Appreciate your assistance. Troponins have been trending down. CT chest reveals no evidence of pulmonary emboli. Current Visit: Yes (3) Necrotic toes Status: Acute Assessment and plan: Continuing IV antibiotics. Patient has been evaluated by vascular and general surgery. Patient went to the OR this morning for I&D of the toe. Current Visit: Yes Hospitalist: Subjective Interval history: Patient is now in the room postop. He is lethargic but arousable and has no complaints. Exam - Constitutional Vitals: Period Temp Pulse Resp BP Sys/Kimball Pulse Ox Last 24 Hr 97.8 F-98.9 F 66-87 17-19 141-160/54-109 99-100 General appearance: no acute distress - Head Head exam: Present: normocephalic, atraumatic - Eye Eye exam: Present: EOMI Pupils: Present: CELSO - ENT ENT exam: Present: normal exam - Neck Neck exam: Present: normal inspection - Respiratory Respiratory exam: Present: clear to auscultation bilaterally - Cardiovascular Cardiovascular exam: Present: regular rate and rhythm - GI/Abdominal GI/Abdominal exam: Present: normal bowel sounds, soft. Absent: mass, tenderness - Extremities Exam Extremities exam: Present: other (Dressing to right foot). Absent: calf tenderness - Back Exam Back exam: Present: normal inspection - Neurological Exam Neurological exam: Present: alert, oriented X3, CN II-XII intact. Absent: motor sensory deficit - Psychiatric Psychiatric exam: Present: normal affect, normal mood. Absent: agitated, anxious - Skin Skin exam: Present: warm, dry. Absent: rash Results - Labs CBC & BMP: 11/28/16 04:33 11/29/16 05:22 Lab Results: I have reviewed the past 24 hour labs - Diagnostic Findings Procedure: CT - chest: report reviewed by me
[2016-11-29] MEDS ORDERED: hydrALAZINE 20 MG/1 ML VIAL ONE (11:58)
[2016-11-29] MEDS ORDERED: hydrALAZINE 20 MG/1 ML VIAL IV ONE (12:01)
[2016-11-29] MEDS ORDERED: ONDANSETRON 4 MG/2 ML VIAL IV ONE (12:02)
[2016-11-29] MEDS: HYDROmorphone 2 MG/1 ML VIAL IV PRN ×3 (12:04→12:14)
[2016-11-29] MEDS ORDERED: HYDROmorphone 2 MG/1 ML VIAL ONE (12:05)
[2016-11-29] MEDS ORDERED: GLUCAGON 1 MG VIAL IM PRN (13:23)
[2016-11-29] MEDS ORDERED: DEXTROSE 50% 25 GM/50 ML VIAL IV PRN (13:23)
--- NOTE | 2016-11-29 14:31 | ECHO Report ---
Kaushal Grant Exam Date: 11/29/2016 10:46 Referring Physician: Technologist: Park Murcia Age: 41 Ht (in): Wt (lb): Gender: M Exam Location: [facility] Echo Indications: HTN, elevvated troponin, COPD, PVD BP: 146 / 81 HR: 66 Rhythm: Sinus Technical Quality: Poor IMPRESSIONS Mildly reduced LV systolic function with regional wall motion as described below. Grade 2/4 diastolic dysfunction. Mild to moderate concentric left ventricular hypertrophy. Trace mitral and pulmonic regurgitation. MEASUREMENTS (Male / Female) Normal Values 2D ECHO LV Diastolic Diameter PLAX 3.5 cm 4.2 - 5.9 / 3.9 - 5.3 cm LV Systolic Diameter PLAX 2.8 cm LV Fractional Shortening PLAX 21.5 % IVS Diastolic Thickness 1.3 cm 0.6 - 1.0 / 0.6 - 0.9 cm LVPW Diastolic Thickness 1.5 cm 0.6 - 1.0 / 0.6 - 0.9 cm RV Internal Dim ED PLAX 2.9 cm Aortic Root Diameter 2.6 cm LA Systolic Diameter LX 3.9 cm 3.0 - 4.0 / 2.7 - 3.8 cm FINDINGS Left Ventricle Mildly increased septal wall thickness. Mild concentric left ventricular hypertrophy with diastolic dysfunction. Overall systolic function is suspected to be mildly reduced, 45-50%. There is suboptimal endocardial resolution which hinders regional wall motion assessment. The anterior septum appears somewhat akinetic, the apex is hypokinetic or akinetic, and the inferior wall may also be akinetic. Right Ventricle Normal right ventricular size. Right Atrium Normal right atrial size. Left Atrium Normal left atrial size. Mitral Valve Mild mitral valve sclerosis. Trace mitral valve regurgitation. Aortic Valve Mild aortic valve sclerosis. Tricuspid Valve Morphologically normal tricuspid valve. Pulmonic Valve Pulmonic valve not well visualized. Trace pulmonary valve regurgitation. Pericardium No pericardial effusion. Aorta Normal size aortic root and proximal ascending aorta. Isabel Dial MD (Electronically Signed) Final Date: 29 Nov 2016 14:20
--- NOTE | 2016-11-29 15:57 | Cardiology Progress Note ---
Assessment and Plan (1) Troponin I above reference range Status: Acute Assessment and plan: SEE PLAN OF CARE LISTED BELOW. Current Visit: Yes (2) COPD (chronic obstructive pulmonary disease) Status: Chronic Assessment and plan: SEE PLAN OF CARE LISTED BELOW. Current Visit: Yes (3) Necrotic toes Status: Acute Assessment and plan: SEE PLAN OF CARE LISTED BELOW. Current Visit: Yes (4) Peripheral vascular disease Status: Chronic Assessment and plan: SEE PLAN OF CARE LISTED BELOW. Current Visit: Yes (5) Abnormal ECG Status: Chronic Current Visit: Yes (6) Hypertension Status: Chronic Current Visit: Yes Cardiology - PN: Subj Interval history: PRIMARY [employer] PR[employer] ASSOCIATE: DR. CODY CABELLO (NEW) PCP: NONE CARDIOLOGY CONSULT NOTE: ABNORMAL TROPONIN MEASUREMENT, PVD, RIGHT LOWER EXTREMITY ISCHEMIA Summary: Mr. Grant is a 41 year old black male with history of tobacco use, hypertension with medication noncompliance, "murmur in childhood", DVT in the remote past. He was admitted with right toe/foot pain. He has been identified as having severe peripheral vascular disease of the bilateral lower extremities. There is some suspicion of possible osteomyelitis involving the right fourth toe as well. He underwent incision and drainage. He was also found to have minimally elevated troponins and an abnormal ECG which prompted cardiology consultation. He acknowledged experiencing significant chest pain approximately 2 days prior to arrival and there is some suspicion that he may have a late presentation Of a myocardial infarction. November 29, 2016: I ordered a CT scan of the chest to rule out pulmonary embolism given his history of DVT with now a mildly elevated troponin and recent chest pain. No pulmonary embolism was identified. However, there is some suspicion that he may have an apical pseudoaneurysm. If there is LV infarction, particularly at the apex, with some flow abnormality this can be a set up for possible apical thrombus. This could be contributing to his acute presentation. Echocardiogram was performed, and overall there is suboptimal image quality. I cannot definitively identify any significant structural abnormality of the apex, but it is suboptimally seen. Overall the systolic function appeared to be preserved, there may be inferior wall hypokinesis but it is not clear. Clinically, the patient has had recurrent symptom of what he calls cramping in his chest, and certain positional maneuvers seem to alleviate this. His breathing is unaffected. Blood pressures been uncontrolled. He is now status post incision and drainage of the affected right fourth toe. He is feeling much better since this occurred. ASSESSMENT/PLAN: 1. ABNORMAL TROPONIN -this could represent residual abnormality from an event that occurred 2 nights prior to admission when he had severe chest pain. CT of the chest revealed a possible pseudoaneurysm of the LV apex which would be consistent with a transmural infarction at some point. He is having atypical chest pain symptoms which could represent postinfarct angina, although they seem to be muscle cramps. I am going to repeat the echocardiogram with a focused study to evaluate the LV and try to determine whether or not he may have an LV thrombus. I also think he would likely benefit from viability study prior to proceeding with left heart catheterization, which would also let us know about a possible transmural infarction. This cannot be initiated until Thursday when nuclear is back in the hospital and staffed. He may require cardiac catheterization. At the very least he will need to be treated with aspirin. 2. ABNORMAL EKG 3. Abnormal echocardiogram. 4. Hypertension-uncontrolled. History of noncompliance. We will advance his antihypertensive regimen. 5. TOBACCO ABUSE-merits and techniques of cessation have been addressed. 6. PERIPHERAL VASCULAR DISEASE Exam (Progress Note) - Constitutional Vitals: Period Temp Pulse Resp BP Sys/Kimball Pulse Ox Last 24 Hr 97.8 F-98.9 F 66-87 16-19 135-175/54-115 96-100 Exam: General appearance: normal weight, no acute distress - Head Head exam: Present: normal inspection, normocephalic, atraumatic. Absent: hematoma, laceration - Eye Eye exam: Present: EOMI. Absent: conjunctival injection, nystagmus, periorbital swelling, scleral icterus, laceration to eyelids Pupils: Present: PERRL. Absent: constricted, dilated, fixed, irregular, unequal - ENT ENT exam: Present: normal exam, normal external ear exam - Neck Neck exam: Present: normal inspection. Absent: lymphadenopathy, meningismus, tenderness, thyromegaly - Respiratory Respiratory exam: Present: clear to auscultation bilaterally. Absent: accessory muscle use, chest wall tenderness - Cardiovascular Cardiovascular exam: Present: regular rate and rhythm. Absent: carotid bruit, gallop, JVD, rubs - GI/Abdominal GI/Abdominal exam: Present: normal bowel sounds, soft. Absent: distended, firm , guarding, hernia, mass, tenderness, rebound. - Extremities Exam Extremities exam: Present: The right foot has a surgical dressing, there are decreased pulses that are not readily palpable bilaterally in the posterior tibialis distribution. Absent: calf tenderness, edema - Back Exam Back exam: Present: normal inspection. Absent: muscle spasm, vertebral tenderness - Neurological Exam Neurological exam: Present: alert, oriented X3, grossly intact without resting or intention tremor - Psychiatric Psychiatric exam: Present: normal affect, normal mood - Skin Skin exam: Present: normal color, warm, dry, intact. Absent: cyanosis, diaphoretic, rash, urticaria Result/EKG - Labs CBC & BMP: 11/28/16 04:33 11/29/16 05:22 Lab Results: I have reviewed the past 24 hour labs Labs: Laboratory Results - last 24 hr 11/29/16 11/29/16 05:22 05:22 ESR Westergren 33 H Sodium 141 Potassium 4.4 Chloride 109 H Carbon Dioxide 22 Anion Gap 14.4 BUN 11 Creatinine 0.80 GFR Calculation 165 BUN/Creatinine Ratio 13.00 Glucose 104 Calculated Osmolality 279.3 Uric Acid 5.9 Calcium 9.0 Magnesium 2.5 H - EKG EKG results: interpreted by me, sinus rhythm (Inferior and lateral T-wave inversion), no acute changes
[2016-11-29] MEDS: ENOXAPARIN 40 MG/0.4 ML SYRINGE SUBCUT SCH (16:00)
[2016-11-29] MEDS: ZALEPLON 5 MG CAPSULE PO PRN (23:42)
[2016-11-30] MEDS: SODIUM CHLORIDE 0.9% 1,000 ML IV SCH ×2 (01:00→13:37)
[2016-11-30] MEDS: hydrALAZINE 20 MG/1 ML VIAL IV PRN ×2 (04:00→17:19)
[2016-11-30] MEDS: VANCOMYCIN INJ 1,500 MG in SODIUM CHLORIDE 0.9% 500 ML IV SCH ×2 (05:00→16:50)
[2016-11-30] MEDS: amLODIPine 10 MG TABLET PO SCH (08:55)
[2016-11-30] MEDS: PANTOPRAZOLE 40 MG TABLET PO SCH (08:55)
--- NOTE | 2016-11-30 10:00 | Event Note ---
He feels a little better and has less tight pain in his toe. He is afebrile. His dressing is dry. We are awaiting cultures. There did appear to be infection on the dorsal aspect of this toe. He also has a component of chronic vascular disease which is being addressed by Dr. Landers who will be back tomorrow.
--- NOTE | 2016-11-30 10:18 | Hospitalist Progress Note ---
Assessment and Plan - Time spent with patient Time spent with patient: Less than 30 minutes (1) Hypertensive urgency Status: Acute Assessment and plan: Blood pressures fairly well controlled. Continue current medical regimen. Current Visit: Yes (2) Elevated troponin Status: Acute Assessment and plan: Patient been evaluated by cardiology. Appreciate your assistance. Troponins have been trending down. CT chest reveals no evidence of pulmonary emboli. 11/30/16: Continued evaluation by cardiology. Appreciate Dr. Melendez's input. Current Visit: Yes (3) Necrotic toes Status: Acute Assessment and plan: Continuing IV antibiotics. Patient has been evaluated by vascular and general surgery. Patient went to the OR this morning for I&D of the toe. 11/30/16: Continuing IV antibiotics and local wound care. Awaiting culture results. Appreciate general and vascular surgical input. Current Visit: Yes Hospitalist: Subjective Interval history: Mr. Grant is doing better. He continues to have some pain in his right foot but states it is much improved. He denies any chest pain, shortness breath, palpitations, nausea or vomiting. Exam - Constitutional Vitals: Period Temp Pulse Resp BP Sys/Kimball Pulse Ox Last 24 Hr 97.8 F-98.9 F 70-84 16-18 135-190/83-115 96-100 General appearance: no acute distress - Head Head exam: Present: normocephalic, atraumatic - Eye Eye exam: Present: EOMI Pupils: Present: CELSO - ENT ENT exam: Present: normal exam - Neck Neck exam: Present: normal inspection - Respiratory Respiratory exam: Present: clear to auscultation bilaterally. Absent: rales - Cardiovascular Cardiovascular exam: Present: regular rate and rhythm - GI/Abdominal GI/Abdominal exam: Present: normal bowel sounds, soft. Absent: mass, tenderness - Extremities Exam Extremities exam: Present: other (Dressing to the right foot). Absent: calf tenderness - Neurological Exam Neurological exam: Present: alert, oriented X3, CN II-XII intact. Absent: motor sensory deficit - Psychiatric Psychiatric exam: Present: normal affect, normal mood. Absent: agitated, anxious - Skin Skin exam: Present: warm, dry. Absent: erythema Results - Labs CBC & BMP: 11/28/16 04:33 11/29/16 05:22
--- NOTE | 2016-11-30 15:20 | Cardiology Progress Note ---
Assessment and Plan (1) Troponin I above reference range Status: Acute Assessment and plan: SEE PLAN OF CARE LISTED BELOW. Current Visit: Yes (2) COPD (chronic obstructive pulmonary disease) Status: Chronic Assessment and plan: SEE PLAN OF CARE LISTED BELOW. Current Visit: Yes (3) Necrotic toes Status: Acute Assessment and plan: SEE PLAN OF CARE LISTED BELOW. Current Visit: Yes (4) Peripheral vascular disease Status: Chronic Assessment and plan: SEE PLAN OF CARE LISTED BELOW. Current Visit: Yes (5) Abnormal ECG Status: Chronic Current Visit: Yes (6) Hypertension Status: Chronic Current Visit: Yes Cardiology - PN: Subj Interval history: PRIMARY [employer] SUPERINTENDENT: None PCP: NONE CARDIOLOGY CONSULT NOTE: ABNORMAL TROPONIN MEASUREMENT, PVD, RIGHT LOWER EXTREMITY ISCHEMIA Summary: Mr. Grant is a 41 year old black male with history of tobacco use, hypertension with medication noncompliance, "murmur in childhood", DVT in the remote past. He was admitted with right toe/foot pain. He has been identified as having severe peripheral vascular disease of the bilateral lower extremities. There is some suspicion of possible osteomyelitis involving the right fourth toe as well. He underwent incision and drainage. He was also found to have minimally elevated troponins and an abnormal ECG which prompted cardiology consultation. He acknowledged experiencing significant chest pain approximately 2 days prior to arrival and there is some suspicion that he may have a late presentation Of a myocardial infarction. November 29, 2016: I ordered a CT scan of the chest to rule out pulmonary embolism given his history of DVT with now a mildly elevated troponin and recent chest pain. No pulmonary embolism was identified. However, there is some suspicion that he may have an apical pseudoaneurysm. If there is LV infarction, particularly at the apex, with some flow abnormality this can be a set up for possible apical thrombus. This could be contributing to his acute presentation. Echocardiogram was performed, and overall there is suboptimal image quality. I cannot definitively identify any significant structural abnormality of the apex, but it is suboptimally seen. Overall the systolic function appeared to be preserved, there may be inferior wall hypokinesis but it is not clear. Clinically, the patient has had recurrent symptom of what he calls cramping in his chest, and certain positional maneuvers seem to alleviate this. His breathing is unaffected. Blood pressures been uncontrolled. He is now status post incision and drainage of the affected right fourth toe. He is feeling much better since this occurred. November 30, 2016: Clinically he seems to be doing well. No chest pain, shortness of breath. His right foot pain is improved overall. No edema. Blood pressures improved, still uncontrolled. ASSESSMENT/PLAN: 1. ABNORMAL TROPONIN -this could represent residual abnormality from an event that occurred 2 nights prior to admission when he had severe chest pain. CT of the chest revealed a possible pseudoaneurysm of the LV apex which would be consistent with a transmural infarction at some point. He is having atypical chest pain symptoms which could represent postinfarct angina, although they seem to be muscle cramps. I am going to repeat the echocardiogram with a focused study to evaluate the LV and try to determine whether or not he may have an LV thrombus. I also think he would likely benefit from viability study prior to proceeding with left heart catheterization, which would also let us know about a possible transmural infarction. This cannot be initiated until Thursday when nuclear is back in the hospital and staffed. He may require cardiac catheterization. At the very least he will need to be treated with aspirin. 2. ABNORMAL EKG 3. Abnormal echocardiogram. 4. Hypertension-uncontrolled. History of noncompliance. We will advance his antihypertensive regimen. 5. TOBACCO ABUSE-merits and techniques of cessation have been addressed. 6. PERIPHERAL VASCULAR DISEASE Exam (Progress Note) - Constitutional Vitals: Period Temp Pulse Resp BP Sys/Kimball Pulse Ox Last 24 Hr 98 F-98.9 F 75-84 18-19 150-190/83-94 96-99 Exam: General appearance: normal weight, no acute distress - Head Head exam: Present: normal inspection, normocephalic, atraumatic. Absent: hematoma, laceration - Eye Eye exam: Present: EOMI. Absent: conjunctival injection, nystagmus, periorbital swelling, scleral icterus, laceration to eyelids Pupils: Present: PERRL. Absent: constricted, dilated, fixed, irregular, unequal - ENT ENT exam: Present: normal exam, normal external ear exam - Neck Neck exam: Present: normal inspection. Absent: lymphadenopathy, meningismus, tenderness, thyromegaly - Respiratory Respiratory exam: Present: clear to auscultation bilaterally. Absent: accessory muscle use, chest wall tenderness - Cardiovascular Cardiovascular exam: Present: regular rate and rhythm. Absent: carotid bruit, gallop, JVD, rubs - GI/Abdominal GI/Abdominal exam: Present: normal bowel sounds, soft. Absent: distended, firm , guarding, hernia, mass, tenderness, rebound. - Extremities Exam Extremities exam: Present: The right foot has a surgical dressing, there are decreased pulses that are not readily palpable bilaterally in the posterior tibialis distribution. Absent: calf tenderness, edema - Back Exam Back exam: Present: normal inspection. Absent: muscle spasm, vertebral tenderness - Neurological Exam Neurological exam: Present: alert, oriented X3, grossly intact without resting or intention tremor - Psychiatric Psychiatric exam: Present: normal affect, normal mood - Skin Skin exam: Present: normal color, warm, dry, intact. Absent: cyanosis, diaphoretic, rash, urticaria Result/EKG - Labs CBC & BMP: 11/28/16 04:33 11/29/16 05:22 Lab Results: I have reviewed the past 24 hour labs
[2016-11-30] MEDS: ENOXAPARIN 40 MG/0.4 ML SYRINGE SUBCUT SCH (16:50)
[2016-11-30] MEDS: ASPIRIN EC 325 MG TABLET PO SCH (16:50)
[2016-11-30] MEDS: CARVEDILOL 6.25 MG TABLET PO SCH (20:43)
[2016-12-01] MEDS: MORPHINE 2 MG/1 ML SYRINGE IV PRN ×4 (04:25→21:25)
[2016-12-01] MEDS: SODIUM CHLORIDE 0.9% 1,000 ML IV SCH ×2 (05:20→17:29)
[2016-12-01] MEDS: VANCOMYCIN INJ 1,500 MG in SODIUM CHLORIDE 0.9% 500 ML IV SCH ×2 (05:20→16:24)
[2016-12-01 05:59] LABS: Basophils % 0.2 % (0.0-0.8); Eosinophils # 0.1 10*3/uL (0.0-0.87); Eosinophils % 1.5 % (0.00-10.9); Hemoglobin 13.9 GM/DL (14.0-18.0); Immature Granulocytes % 0.6 %; Immature Granulocytes Absolute 0.05 #; Lymphocytes # 2.3 10*3/uL (1.4-4.0); Lymphocytes % 28.2 % (21.2-54.2); Mean Corpuscular HGB Conc 33.1 GM/DL (32-36); Mean Corpuscular Hemoglobin 28 PG (27-34); Mean Corpuscular Volume 85.7 FL (87-102); Mean Platelet Volume 9.8 FL (9.6-12.0); Monocytes # 0.9 10*3/uL (0.11-0.8); Monocytes % 11.4 % (1.7-12.7); Neutrophils # 4.7 10*3/uL (1.4-7.4); Neutrophils % 58.1 % (38.7-73.9); Platelet Count 286 T/CUMM (130-400); Red Cell Distribution Width 12.9 % (9.3-17.3); White Blood Count 8.1 T/CUMM (4-12)
[2016-12-01 06:22] LABS: Calcium 8.7 MG/DL (8.5-10.1); Magnesium 2.4 MG/DL (1.8-2.4); Osmolality,Calculated 277.5 MOS/KG (273-304); Potassium 4.3 MMOL/L (3.5-5.1)
--- NOTE | 2016-12-01 06:46 | Event Note ---
He feels well but continues to have pain in his fourth toe. The toe still has exquisite tenderness at the distal part of the toe. There is no tenderness or abnormality that I can appreciate in his forefoot and his other toes. I had a long discussion with the patient and explained that he probably has an underlying osteomyelitis. We discussed his options including prolonged IV antibiotic therapy which may or may not be successful especially in light of his ischemia with his foot or going ahead and doing an amputation. The patient desires amputation because of the continued pain in his toe when he would like relief from it. I did explain that there is a risk associated with the surgery of nonhealing of his wound especially with his underlying vascular disease. He would like to go ahead and proceed today because of the pain associated with this toe. Procedure and risk of been explained and he wishes to proceed
--- NOTE | 2016-12-01 09:11 | Event Note ---
I have reviewed the findings with Dr. Kyle Villarreal and agree with going ahead with amputation of the fourth toe and then we can address attempted reperfusion if we see that this is clearly not going to heal.
--- NOTE | 2016-12-01 09:12 | Hospitalist Progress Note ---
Assessment and Plan - Time spent with patient Time spent with patient: Less than 30 minutes (1) Hypertensive urgency Status: Acute Assessment and plan: Blood pressures fairly well controlled. Continue current medical regimen. 12/01/16: Blood pressures remained slightly elevated. Will make any further adjustments as needed and in accord with cardiology recommendations. Current Visit: Yes (2) Elevated troponin Status: Acute Assessment and plan: Patient been evaluated by cardiology. Appreciate your assistance. Troponins have been trending down. CT chest reveals no evidence of pulmonary emboli. 11/30/16: Continued evaluation by cardiology. Appreciate Dr. Melendez's input. 12/01/16: Continued evaluation by cardiology. Deferred to their recommendations. Current Visit: Yes (3) Necrotic toes Status: Acute Assessment and plan: Continuing IV antibiotics. Patient has been evaluated by vascular and general surgery. Patient went to the OR this morning for I&D of the toe. 11/30/16: Continuing IV antibiotics and local wound care. Awaiting culture results. Appreciate general and vascular surgical input. 12/01/16: Continuing IV antibiotics and local wound care. He after discussion with Dr. Wright III has decided to proceed with amputation. Current Visit: Yes Hospitalist: Subjective Interval history: Patient continues to have pain in his foot. It is noted that Dr. Kyle Villarreal plans to take him to the OR today for amputation. He denies any chest pain, shortness breath, nausea, vomiting. Exam - Constitutional Vitals: Period Temp Pulse Resp BP Sys/Kimball Pulse Ox Last 24 Hr 97.8 F-98.8 F 75-95 18-19 131-177/78-101 97-100 General appearance: no acute distress - Head Head exam: Present: normocephalic, atraumatic - Eye Eye exam: Present: EOMI Pupils: Present: CELSO - ENT ENT exam: Present: normal exam - Neck Neck exam: Present: normal inspection - Respiratory Respiratory exam: Present: clear to auscultation bilaterally - Cardiovascular Cardiovascular exam: Present: regular rate and rhythm - GI/Abdominal GI/Abdominal exam: Present: normal bowel sounds, soft. Absent: mass, tenderness - Extremities Exam Extremities exam: Present: other (Dressing to right foot) - Back Exam Back exam: Present: normal inspection - Neurological Exam Neurological exam: Present: alert, oriented X3, CN II-XII intact. Absent: motor sensory deficit - Psychiatric Psychiatric exam: Present: normal affect, normal mood. Absent: agitated, anxious - Skin Skin exam: Present: warm. Absent: dry Results - Labs CBC & BMP: 12/01/16 05:31 12/01/16 05:31 Lab Results: I have reviewed the past 24 hour labs
[2016-12-01] MEDS: ASPIRIN EC 325 MG TABLET PO SCH (09:26)
[2016-12-01] MEDS: PANTOPRAZOLE 40 MG TABLET PO SCH (09:32)
[2016-12-01] MEDS: CARVEDILOL 6.25 MG TABLET PO SCH ×2 (09:32→20:15)
[2016-12-01] MEDS: amLODIPine 10 MG TABLET PO SCH (09:32)
--- NOTE | 2016-12-01 10:41 | Cardiology Progress Note ---
Jose J Conroy April RN, am scribing for, and in the presence of, Isabel Dial MD 10:41. Assessment and Plan (1) Necrotic toes Status: Acute Current Visit: Yes (2) Troponin I above reference range Status: Acute Current Visit: Yes (3) Abnormal ECG Status: Chronic Current Visit: Yes (4) COPD (chronic obstructive pulmonary disease) Status: Chronic Current Visit: Yes (5) Hypertension Status: Chronic Current Visit: Yes (6) Peripheral vascular disease Status: Chronic Current Visit: Yes Cardiology - PN: Subj Interval history: PRIMARY LUMBER BUYER: None PCP: NONE CARDIOLOGY CONSULT NOTE: ABNORMAL TROPONIN MEASUREMENT, PVD, RIGHT LOWER EXTREMITY ISCHEMIA Summary: Mr. Grant is a 41 year old black male with history of tobacco use, hypertension with medication noncompliance, "murmur in childhood", DVT in the remote past. He was admitted with right toe/foot pain. He has been identified as having severe peripheral vascular disease of the bilateral lower extremities. There is some suspicion of possible osteomyelitis involving the right fourth toe as well. He underwent incision and drainage. He was also found to have minimally elevated troponins and an abnormal ECG which prompted cardiology consultation. He acknowledged experiencing significant chest pain approximately 2 days prior to arrival and there is some suspicion that he may have a late presentation Of a myocardial infarction. November 29, 2016: I ordered a CT scan of the chest to rule out pulmonary embolism given his history of DVT with now a mildly elevated troponin and recent chest pain. No pulmonary embolism was identified. However, there is some suspicion that he may have an apical pseudoaneurysm. If there is LV infarction, particularly at the apex, with some flow abnormality this can be a set up for possible apical thrombus. This could be contributing to his acute presentation. Echocardiogram was performed, and overall there is suboptimal image quality. I cannot definitively identify any significant structural abnormality of the apex, but it is suboptimally seen. Overall the systolic function appeared to be preserved, there may be inferior wall hypokinesis but it is not clear. Clinically, the patient has had recurrent symptom of what he calls cramping in his chest, and certain positional maneuvers seem to alleviate this. His breathing is unaffected. Blood pressures been uncontrolled. He is now status post incision and drainage of the affected right fourth toe. He is feeling much better since this occurred. November 30, 2016: Clinically he seems to be doing well. No chest pain, shortness of breath. His right foot pain is improved overall. No edema. Blood pressures improved, still uncontrolled. December 01, 2016: Mr. Grant reports some discomfort that he describes as "cramping " in his chest. He states this pain he has been having periodically. He has to stretch out to relieve this cramping and this maneuver seems to work. He denies any shortness of breath, palpitations, or dizziness. His blood pressure continues to be elevated, this morning it is 158/100. He had a 6 beat run of what looks like may be VTach this morning. awake overnight monitor currently shows sinus rhythm with heart rates in the 70's. He is scheduled for amputation of the fourth toe on his right foot with Dr. Wright today. ASSESSMENT/PLAN: 1. ABNORMAL TROPONIN -this could represent residual abnormality from an event that occurred 2 nights prior to admission when he had severe chest pain. CT of the chest revealed a possible pseudoaneurysm of the LV apex which would be consistent with a transmural infarction at some point. He is having atypical chest pain symptoms which could represent postinfarct angina, although they seem to be muscle cramps. I am going to repeat the echocardiogram with a focused study to evaluate the LV and try to determine whether or not he may have an LV thrombus. I also think he would likely benefit from viability study prior to proceeding with left heart catheterization, which would also let us know about a possible transmural infarction. This cannot be initiated until Thursday when nuclear is back in the hospital and staffed. Dr. Charles will be rounding tomorrow and can consider viability nuclear stress test or cardiac catheterization. At the very least he will need to be treated with aspirin. 2. ABNORMAL EKG 3. Abnormal echocardiogram. 4. Hypertension-uncontrolled. History of noncompliance. We will advance his antihypertensive regimen. 5. TOBACCO ABUSE-merits and techniques of cessation have been addressed. 6. PERIPHERAL VASCULAR DISEASE Exam (Progress Note) - Constitutional Vitals: Period Temp Pulse Resp BP Sys/Kimball Pulse Ox Last 24 Hr 97.8 F-98.8 F 75-95 18-19 131-177/78-101 97-100 General appearance: normal weight, no acute distress - Head Head exam: Absent: abrasion, hematoma - Eye Eye exam: Absent: periorbital swelling, laceration to eyelids - Neck Neck exam: Absent: lymphadenopathy, tenderness - Respiratory Respiratory exam: Present: clear to auscultation bilaterally. Absent: accessory muscle use, chest wall tenderness - Cardiovascular Cardiovascular exam: Present: regular rate and rhythm. Absent: carotid bruit, diastolic murmur, rubs, systolic murmur - GI/Abdominal GI/Abdominal exam: Present: normal bowel sounds, soft. Absent: distended, tenderness - Extremities Exam Extremities exam: Present: other (right foot is bandaged). Absent: calf tenderness, edema - Back Exam Back exam: Absent: muscle spasm, vertebral tenderness - Neurological Exam Neurological exam: Present: alert, oriented X3 - Psychiatric Psychiatric exam: Present: normal affect, normal mood - Skin Skin exam: Present: warm, dry, other (right foot is bandaged) Result/EKG - Labs CBC & BMP: 12/01/16 05:31 12/01/16 05:31 Lab Results: I have reviewed the past 24 hour labs Labs: Laboratory Results - last 24 hr 11/30/16 11/30/16 12/01/16 16:35 17:01 05:31 WBC 8.1 RBC 4.90 Hgb 13.9 L Hct 42.0 MCV 85.7 L MCH 28 MCHC 33.1 RDW 12.9 Plt Count 286 MPV 9.8 Neut % (Auto) 58.1 Lymph % (Auto) 28.2 Sherman % (Auto) 11.4 Eos % (Auto) 1.5 Baso % (Auto) 0.2 Neut # (Auto) 4.7 Lymph # (Auto) 2.3 Sherman # (Auto) 0.9 H Eos # (Auto) 0.1 Baso # (Auto) 0.0 Immature Gran % 0.6 Nucleated RBC % 0.0 Immature Gran # 0.05 Nucleated RBCs # 0.00 Sodium Potassium Chloride Carbon Dioxide Anion Gap BUN Creatinine GFR Calculation BUN/Creatinine Ratio Glucose POC Glucose 100 Calculated Osmolality Calcium Magnesium Vancomycin Trough 10.5 12/01/16 05:31 WBC RBC Hgb Hct MCV MCH MCHC RDW Plt Count MPV Neut % (Auto) Lymph % (Auto) Sherman % (Auto) Eos % (Auto) Baso % (Auto) Neut # (Auto) Lymph # (Auto) Sherman # (Auto) Eos # (Auto) Baso # (Auto) Immature Gran % Nucleated RBC % Immature Gran # Nucleated RBCs # Sodium 139 Potassium 4.3 Chloride 107 Carbon Dioxide 23 Anion Gap 13.3 BUN 15 Creatinine 1.00 GFR Calculation 138 BUN/Creatinine Ratio 15.00 Glucose 100 POC Glucose Calculated Osmolality 277.5 Calcium 8.7 Magnesium 2.4 Vancomycin Trough - EKG EKG results: interpreted by me EKG shows: sinus rhythm Jayro Conroy Jennifer, MD, personally performed the services described in this documentation, ascribed by Tosha Lux RN in my presence, and it is both accurate and complete .
[2016-12-01] MEDS ORDERED: BUPIVACAINE 0.25% 50 ML VIAL ONE (10:51)
--- NOTE | 2016-12-01 11:26 | Operative Note ---
Date of procedure: 12/01/16 Pre-op diagnosis: Osteomyelitis right fourth toe Post-op diagnosis: same Procedure: Ray amputation right fourth toe and metatarsal head Findings and technique: After informed consent was obtained the patient was brought the operating room and placed in supine position. After IV sedation was administered the patient's right foot was prepped and draped in usual sterile fashion. Local anesthesia was infiltrated at the toe administering a digital block. An elliptical incision was then made at the base of the toe and the toe was disarticulated and removed. Cautery was used to achieve hemostasis and the patient had what appeared to be a better blood supply than expected. I then used a rondure to remove the metatarsal head and the wound was then copiously irrigated and closed interrupted 3-0 nylon suture in the portion of the incision left open and packed with iodoform gauze. A bulky dressing was applied. Anesthesia: MAC, local Surgeon / Physician: Oziel Wright III. Estimated blood loss: minimal Specimens: other (Toe) Condition: stable Disposition: PACU Results - Labs CBC & BMP: 12/01/16 05:31 12/01/16 05:31 Discharge Plan - Discharge Medications No Action No Known Home Medications [No Known Home Medications] - Follow Up or Referral - Forms/Instructions
[2016-12-01] MEDS ORDERED: PROPOFOL 200 MG/20 ML VIAL IV ONE (11:47)
[2016-12-01] MEDS ORDERED: MIDAZOLAM 2 MG/2 ML VIAL ONE (11:48)
[2016-12-01] MEDS ORDERED: fentaNYL 100 MCG/2 ML VIAL ONE (11:48)
--- NOTE | 2016-12-01 12:09 | Anesthesia Post-Op ---
Anesthesia Post OP - Post Ansesthetic Evaluation Patient seen in post op: Yes Resp: within normal limits CV: within normal limits Mental: within normal limits Temp: within normal limits [id number]: within normal limits Nausea and Vomiting: within normal limits Pain: within normal limits
[2016-12-01] MEDS: ENOXAPARIN 40 MG/0.4 ML SYRINGE SUBCUT SCH (16:45)
--- NOTE | 2016-12-01 20:02 | ECHO Report ---
Kaushal Grant Exam Date: 12/01/2016 09:55 Referring Physician: Technologist: Park Murcia Age: 41 Ht (in): 73 Wt (lb): 218 Gender: M Exam Location: [facility] Echo Indications: focuse study to evaluate apex BP: / HR: Rhythm: Sinus Technical Quality: good IMPRESSIONS This is a focused study to evaluate the apex of the ventricular myocardium. The apex ventricular myocardium is profoundly hypokinetic. He does not appear to be dyskinetic or akinetic. There is a echodense region that appears to be in the ventricle at the very distal anterior apical segment that may represent thrombus. This is seen primarily in the parasternal short axis and is not appreciated in the apical views. MEASUREMENTS (Male / Female) Normal Values FINDINGS Left Ventricle Right Ventricle Right Atrium Left Atrium Mitral Valve Aortic Valve Tricuspid Valve Pulmonic Valve Pericardium Aorta Edita Falcon (Electronically Signed) Final Date: 01 Dec 2016 20:01
[2016-12-01] MEDS: ZALEPLON 5 MG CAPSULE PO PRN ×2 (20:15→22:18)
[2016-12-02] MEDS: MORPHINE 2 MG/1 ML SYRINGE IV PRN ×4 (02:46→20:21)
[2016-12-02] MEDS: VANCOMYCIN INJ 1,500 MG in SODIUM CHLORIDE 0.9% 500 ML IV SCH ×2 (05:10→18:27)
[2016-12-02 06:15] LABS: Basophils % 0.4 % (0.0-0.8); Eosinophils # 0.1 10*3/uL (0.0-0.87); Eosinophils % 0.8 % (0.00-10.9); Hemoglobin 14.6 GM/DL (14.0-18.0); Immature Granulocytes % 0.5 %; Immature Granulocytes Absolute 0.05 #; Lymphocytes # 2.3 10*3/uL (1.4-4.0); Lymphocytes % 21.4 % (21.2-54.2); Mean Corpuscular HGB Conc 34.8 GM/DL (32-36); Mean Corpuscular Hemoglobin 30 PG (27-34); Mean Platelet Volume 10.6 FL (9.6-12.0); Monocytes # 1.4 10*3/uL (0.11-0.8); Monocytes % 13.5 % (1.7-12.7); Neutrophils # 6.7 10*3/uL (1.4-7.4); Neutrophils % 63.4 % (38.7-73.9); Platelet Count 317 T/CUMM (130-400); Red Blood Count 4.94 MC/CUMM (3.8-5.5); Red Cell Distribution Width 12.9 % (9.3-17.3); White Blood Count 10.5 T/CUMM (4-12)
[2016-12-02 06:40] LABS: Calcium 8.6 MG/DL (8.5-10.1); Magnesium 2.4 MG/DL (1.8-2.4); Osmolality,Calculated 272.1 MOS/KG (273-304); Potassium 4.1 MMOL/L (3.5-5.1)
[2016-12-02] MEDS: ASPIRIN EC 325 MG TABLET PO SCH (09:23)
[2016-12-02] MEDS: amLODIPine 10 MG TABLET PO SCH (09:23)
[2016-12-02] MEDS: PANTOPRAZOLE 40 MG TABLET PO SCH (09:23)
[2016-12-02] MEDS: CARVEDILOL 6.25 MG TABLET PO SCH (09:23)
[2016-12-02] MEDS: SODIUM CHLORIDE 0.9% 1,000 ML IV SCH (09:23)
--- NOTE | 2016-12-02 09:35 | Event Note ---
He has less pain. His dressing is dry. This appears that this was more of an infectious problem with this toe. We will take his dressing down tomorrow. Hopefully he will be ready for discharge by tomorrow.
[2016-12-02] MEDS: hydrALAZINE 20 MG/1 ML VIAL IV PRN (11:12)
[2016-12-02] MEDS ORDERED: DIAZEPAM 5 MG TABLET PO ONE (12:24)
[2016-12-02] MEDS ORDERED: MAGNESIUM SULF RIDER 2 GM in PREMIX 1 EACH IV PRN (12:24)
[2016-12-02] MEDS ORDERED: diphenhydrAMINE CAP 25 MG CAPSULE PO ONE (12:24)
[2016-12-02] MEDS ORDERED: POTASSIUM CHLORIDE RIDER 10 MEQ in PREMIX 1 EACH IV PRN (12:24)
--- NOTE | 2016-12-02 12:24 | Cardiology Progress Note ---
I, Tosha Lux RN, am scribing for, and in the presence of, Home Charles MD 12:24. Assessment and Plan (1) Abnormal ECG Status: Chronic Assessment and plan: The patient has an abnormal EKG, abnormal echo, other peripheral vascular disease, and a cardiomyopathy. I think he needs definitive coronary artery assessment with cardiac catheterization. I discussed all this with the patient including the risk, alternatives, potential benefits today. I am going to plan to do this tomorrow via right radial approach. Current Visit: Yes (2) Cardiomyopathy Status: Acute Current Visit: Yes (3) Troponin I above reference range Status: Acute Current Visit: Yes (4) Necrotic toes Status: Acute Current Visit: Yes (5) COPD (chronic obstructive pulmonary disease) Status: Chronic Current Visit: Yes (6) Hypertension Status: Chronic Current Visit: Yes (7) Peripheral vascular disease Status: Chronic Current Visit: Yes Cardiology - PN: Subj Interval history: PRIMARY US CUSTOMS AND BORDER OFFICER: None PCP: NONE CARDIOLOGY CONSULT NOTE: ABNORMAL TROPONIN MEASUREMENT, PVD, RIGHT LOWER EXTREMITY ISCHEMIA Mr. Grant is a 41 year old black male with history of tobacco use, hypertension with medication noncompliance, "murmur in childhood", DVT in the remote past. He was admitted with right toe/foot pain. He has been identified as having severe peripheral vascular disease of the bilateral lower extremities. There is some suspicion of possible osteomyelitis involving the right fourth toe as well. He underwent incision and drainage. He was also found to have minimally elevated troponins and an abnormal ECG which prompted cardiology consultation. He acknowledged experiencing significant chest pain approximately 2 days prior to arrival and there is some suspicion that he may have a late presentation Of a myocardial infarction. His echocardiogram also shows evidence of previous infarction/ischemia. I discussed all this with the patient today and I think he would benefit from definitive coronary artery assessment by cardiac catheterization. We actually contemplated doing this today but we are going to plan to do this tomorrow. He is day 1 status post right fourth toe amputation Dr. Kyle POWERS, dressing noted to right foot. He continues to have some chest cramping, but states this is improved. He denies shortness of breath, palpitations, or dizziness. His blood pressures continue to be high, but are improved. membership coordinator currently shows sinus rhythm with heart rates in the 70s. Labs are unremarkable. Current Medications Hydrocodone Bitart/Acetaminophen ([place] 5-325) 1 tablet PO Q6H PRN PRN Reason: Pain Moderate (4-7) Last Admin: 12/02/16 04:50 Dose: 1 tablet Amlodipine Besylate (Norvasc) 10 mg PO DAILY [facility] Last Admin: 12/01/16 09:32 Dose: 10 mg Aspirin () 325 mg PO DAILY [facility] Last Admin: 12/01/16 09:26 Dose: Not Given Carvedilol (Coreg) 6.25 mg PO BID [facility] Last Admin: 12/01/16 20:15 Dose: 6.25 mg Dextrose/Water (D50) 25 gm IV PRN PRN PRN Reason: Hypoglycemia with IV access Enoxaparin Sodium (Lovenox) 40 mg SUBCUT Q24H [facility] Last Admin: 12/01/16 16:45 Dose: 40 mg Glucagon () 1 mg IM PRN PRN PRN Reason: Hypoglycemia w/o IV access Hydralazine HCl (Apresoline Inj) 10 mg IV Q1H PRN PRN Reason: Hypertension Last Admin: 11/30/16 17:19 Dose: 10 mg Sodium Chloride (Ns) 1,000 mls @ 70 mls/hr IV .[id number] [facility] Last Admin: 12/01/16 17:29 Dose: Not Given Vancomycin HCl 1,500 mg/ (Sodium Chloride) 500 mls @ 250 mls/hr IV Q12H [facility] Last Admin: 12/02/16 05:10 Dose: 250 mls/hr Morphine Sulfate () 2 mg IV Q4H PRN PRN Reason: Pain Severe (8-10) Last Admin: 12/02/16 02:46 Dose: 2 mg Ondansetron HCl (Zofran Inj) 4 mg IV Q4H PRN PRN Reason: Nausea Pantoprazole Sodium (Protonix Tab) 40 mg PO DAILY [facility] Last Admin: 12/01/16 09:32 Dose: 40 mg Zaleplon (Sonata) 5 mg PO BEDTIME PRN PRN Reason: Insomnia Last Admin: 12/01/16 22:18 Dose: 5 mg Exam (Progress Note) - Constitutional Vitals: Period Temp Pulse Resp BP Sys/Kimball Pulse Ox Last 24 Hr 97.1 F-99 F 54-98 16-20 136-200/80-105 94-100 General appearance: normal weight, no acute distress - Head Head exam: Absent: abrasion, hematoma - Eye Eye exam: Absent: periorbital swelling, laceration to eyelids - Neck Neck exam: Absent: tenderness - Respiratory Respiratory exam: Present: clear to auscultation bilaterally. Absent: accessory muscle use, chest wall tenderness - Cardiovascular Cardiovascular exam: Present: regular rate and rhythm, other. Absent: diastolic murmur, systolic murmur - GI/Abdominal GI/Abdominal exam: Present: normal bowel sounds, soft. Absent: distended, tenderness - Extremities Exam Extremities exam: Present: other (Dressing noted to right foot, clubbing of fingers on the hands). Absent: edema - Neurological Exam Neurological exam: Present: alert, oriented X3 - Psychiatric Psychiatric exam: Present: normal affect, normal mood - Skin Skin exam: Present: warm, dry Result/EKG - Labs CBC & BMP: 12/02/16 04:11 12/02/16 04:11 Lab Results: I have reviewed the past 24 hour labs Labs: Laboratory Results - last 24 hr 12/02/16 12/02/16 04:11 04:11 WBC 10.5 RBC 4.94 Hgb 14.6 Hct 42.0 MCV 85.0 L MCH 30 MCHC 34.8 RDW 12.9 Plt Count 317 MPV 10.6 Neut % (Auto) 63.4 Lymph % (Auto) 21.4 Reynolds % (Auto) 13.5 H Eos % (Auto) 0.8 Baso % (Auto) 0.4 Neut # (Auto) 6.7 Lymph # (Auto) 2.3 Reynolds # (Auto) 1.4 H Eos # (Auto) 0.1 Baso # (Auto) 0.0 Immature Gran % 0.5 Nucleated RBC % 0.0 Immature Gran # 0.05 Nucleated RBCs # 0.00 Sodium 135 L Potassium 4.1 Chloride 102 Carbon Dioxide 22 Anion Gap 15.1 H BUN 18 Creatinine 0.90 GFR Calculation 157 BUN/Creatinine Ratio 20.00 Glucose 123 H Calculated Osmolality 272.1 L Calcium 8.6 Magnesium 2.4 - EKG EKG results: interpreted by me EKG shows: sinus rhythm Araceli Conroy Michael, MD, personally performed the services described in this documentation, ascribed by Tosha Lux RN in my presence, and it is both accurate and complete .
[2016-12-02] MEDS ORDERED: hydrALAZINE 20 MG/1 ML VIAL IV PRN (14:09)
[2016-12-02] MEDS ORDERED: VALSARTAN 80 MG TABLET PO SCH (14:30)
[2016-12-02] MEDS: ENOXAPARIN 40 MG/0.4 ML SYRINGE SUBCUT SCH (16:39)
--- NOTE | 2016-12-02 18:22 | Hospitalist Progress Note ---
Assessment and Plan (1) Peripheral vascular disease Status: Chronic Assessment and plan: Status post amputation of the fourth right toe. Current Visit: Yes (2) Hypertension Status: Chronic Current Visit: Yes Qualifiers: Hypertension type: essential hypertension Qualified Code(s): I10 - Essential (primary) hypertension (3) Cardiomyopathy Status: Acute Assessment and plan: Patient with an abnormal echo and questionable thrombus versus pseudoaneurysm. Cardiology following. Current Visit: Yes Hospitalist: Subjective Interval history: Patient seen and examined. No acute events overnight. Case discussed with nursing staff. Labs reviewed. Exam - Constitutional Vitals: Period Temp Pulse Resp BP Sys/Kimball Pulse Ox Last 24 Hr 98.2 F-99.0 F 77-98 16-20 151-190/84-106 94-100 Exam: Constitutional System: no distress. No tremulousness. Head: Normocephalic, atraumatic. Ears, Nose and Throat System: No pain or tenderness. No epistaxis or discharge Eyes System: Pupils equal, round, and reactive. Extraocular muscles intact. Neck: Supple, without adenopathy, No jugular venous distention. Respiratory System: Chest clear to auscultation. Cardiovascular System: Heart with regular rate and rhythm. No murmur. GI System: Abdomen soft, nontender. Normo active bowel sounds present. Musculoskeletal System: limbs with no pedal edema. Postoperative changes noted in the right lower extremity. Neurological System: No discernable sensory deficit. No aphasia Psychiatric System: Conversation is rational Results - Labs CBC & BMP: 12/02/16 04:11 12/02/16 04:11 Lab Results: I have reviewed the past 24 hour labs
[2016-12-02] MEDS: ZALEPLON 5 MG CAPSULE PO PRN (20:31)
[2016-12-02] MEDS: CARVEDILOL 12.5 MG TABLET PO SCH (20:33)
[2016-12-03] MEDS: VANCOMYCIN INJ 1,500 MG in SODIUM CHLORIDE 0.9% 500 ML IV SCH ×3 (01:45→17:55)
[2016-12-03] MEDS: SODIUM CHLORIDE 0.9% 1,000 ML IV SCH ×3 (01:46→22:38)
[2016-12-03] MEDS: MORPHINE 2 MG/1 ML SYRINGE IV PRN (01:48)
[2016-12-03] MEDS: HYDROmorphone 2 MG/1 ML VIAL IV PRN ×2 (04:01→16:10)
[2016-12-03 04:50] LABS: Basophils % 0.2 % (0.0-0.8); Eosinophils # 0.1 10*3/uL (0.0-0.87); Eosinophils % 0.9 % (0.00-10.9); Hemoglobin 14.4 GM/DL (14.0-18.0); Immature Granulocytes % 0.6 %; Immature Granulocytes Absolute 0.08 #; Lymphocytes # 2.9 10*3/uL (1.4-4.0); Lymphocytes % 23.2 % (21.2-54.2); Mean Corpuscular HGB Conc 34.3 GM/DL (32-36); Mean Corpuscular Hemoglobin 29 PG (27-34); Mean Corpuscular Volume 84.8 FL (87-102); Mean Platelet Volume 9.4 FL (9.6-12.0); Monocytes # 1.8 10*3/uL (0.11-0.8); Monocytes % 14.8 % (1.7-12.7); Neutrophils # 7.4 10*3/uL (1.4-7.4); Neutrophils % 60.3 % (38.7-73.9); Platelet Count 296 T/CUMM (130-400); Red Blood Count 4.95 MC/CUMM (3.8-5.5); Red Cell Distribution Width 12.7 % (9.3-17.3); White Blood Count 12.3 T/CUMM (4-12)
[2016-12-03 05:32] LABS: Calcium 9.3 MG/DL (8.5-10.1); Magnesium 2.3 MG/DL (1.8-2.4); Osmolality,Calculated 275.7 MOS/KG (273-304); Potassium 4.3 MMOL/L (3.5-5.1)
[2016-12-03] MEDS ORDERED: diphenhydrAMINE CAP 25 MG CAPSULE PO ONE (06:35)
[2016-12-03] MEDS ORDERED: DIAZEPAM 5 MG TABLET PO ONE (06:35)
[2016-12-03] MEDS ORDERED: diphenhydrAMINE CAP 50 MG CAPSULE PO ONE (06:36)
[2016-12-03] MEDS ORDERED: HEPARIN/NACL 0.9% 2 UNITS/ML 1,000 ML IV ONE (06:47)
[2016-12-03] MEDS ORDERED: LIDOCAINE 1% 20 ML VIAL ONE (06:47)
[2016-12-03] MEDS ORDERED: VERAPAMIL 5 MG/2 ML VIAL ONE (06:47)
[2016-12-03] MEDS ORDERED: NITROGLYCERIN DRIP 50 MG/250 ML BOTTLE IV ONE (06:47)
[2016-12-03] MEDS ORDERED: MIDAZOLAM 2 MG/2 ML VIAL ONE (07:51)
[2016-12-03] MEDS ORDERED: HYDROmorphone 2 MG/1 ML VIAL ONE (07:51)
[2016-12-03] MEDS ORDERED: ENOXAPARIN 60 MG/0.6 ML SYRINGE ONE (08:04)
--- NOTE | 2016-12-03 08:26 | Cardiac Catheterization ---
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 He also has peripheral vascular disease and a cardiomyopathy. He is undergoing cardiac catheterization for definitive coronary artery assessment possible revascularization. PROCEDURES PERFORMED: 1. Right radial percutaneous arteriotomy 2. Left heart catheterization 3. Resting hemodynamics 4. Left ventriculography. 5. Coronary arteriography 6. Hemoband placement DESCRIPTION OF PROCEDURE: After obtaining informed consent, the patient was taken to the bundle tier and labeler, prepped and draped in the usual sterile manner. We accessed the right radial artery using modified Seldinger technique in the usual fashion. We placed a 6-Georgian slim sheath without difficulty. We then used a Tig catheter to engage the right coronary and left main coronary arteries to perform angiography in multiple orthogonal views. There were no problems or complications during the procedure. We then used an angled pigtail catheter to perform a left heart catheterization with left ventriculogram and pressure measurement in the usual fashion. After removing the catheter, we placed a HemoBand and removed the sheath without difficulty. There were no problems during the case. HEMODYNAMICS: Please see the accompanying data sheet. CORONARIES: The left main coronary artery is a large-caliber vessel which trifurcates into the left anterior descending left circumflex and ramus intermedius branches. The left main coronary artery is angiographically free of significant obstructive disease. The left circumflex coronary artery is a moderate-sized vessel which gives off a small first obtuse marginal branch and a moderate-sized second obtuse marginal branch. The left circumflex and extremities are angiographically free of significant obstructive disease. The ramus intermedius is a moderate to large caliber vessel which courses over the anterolateral wall and is angiographically free of significant obstructive disease. The left anterior descending is a moderate to large caliber vessel which gives off a moderate-sized bifurcating diagonal branch. There are mild luminal irregularities in the proximal left anterior descending artery. The LAD tapers to be quite small at the apex. 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 The right coronary artery is a large-caliber vessel which gives off the posterior descending artery and a posterolateral branch. There are mild luminal irregularities in the right coronary artery system but no significant focal obstruction is seen. LEFT VENTRICULOGRAPHY: Left ventriculogram shows left ventricular ejection fraction of approximately 45-50%. 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 IMPRESSION: 1. I do not see any significant obstructive coronary artery disease in need of revascularization at this time. 2. 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 The LAD does taper to be quite small at the apex but I do not see any focal occlusion. 3. Mildly elevated left ventricular end-diastolic pressure. PLAN: At this point I think we should manage the patient with optimal medical therapy for his peripheral vascular disease and mild cardiomyopathy. I do not see any need for any sort of cardiac revascularization at this time. The patient could be discharged home later today if he is otherwise ready. We can see him back in a couple of weeks for continued medical management and optimization. Surgeon / Physician: Home Charles Estimated blood loss: minimal Specimens: other (Toe) Condition: stable - Medications / Follow-up
--- NOTE | 2016-12-03 08:27 | Event Note ---
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 He has a mildly reduced left ventricular systolic function. We can manage him with medical therapy. The catheterization was done via the right radial approach and he should be able to go home in a couple of hours with he is otherwise ready. We can follow-up with him in a couple of weeks.
--- NOTE | 2016-12-03 08:57 | Event Note ---
I came by and patient is getting a heart catheterization this morning
[2016-12-03] MEDS: VALSARTAN 80 MG TABLET PO SCH ×2 (09:24→20:45)
[2016-12-03] MEDS: ASPIRIN EC 325 MG TABLET PO SCH (09:24)
[2016-12-03] MEDS: CARVEDILOL 12.5 MG TABLET PO SCH ×2 (09:24→20:45)
[2016-12-03] MEDS: PANTOPRAZOLE 40 MG TABLET PO SCH (09:24)
--- NOTE | 2016-12-03 11:19 | Pathology Report from [facility] ---
[facility] ACCESSION # : [id number] PATIENT NAME : Kaushal Grant ORDERING DR : NEIL LUJAN III, MD CLINICAL HX: Diabetic peripheral vascular disease with gangrene POST-OP DX: Same SPECIMEN INFO: Right fourth toe GROSS DESCRIPTION: Received in formalin labeled KAUSHAL GRANT is a focally gangrenous toe and distal metatarsal measuring 4.8 x 1.8 cm. A escrow representative section is submitted in one cassette. DIAGNOSIS FOR KAUSHAL GRANT: RIGHT 4th TOE, AMPUTATION: Gangrene with necrosis and suppuration, focal dystrophic calcification. COLLECTED DATE: 12/02/2016 [facility] REPORT DATE: 12/03/2016 ELECTRONICALLY SIGNED BY: Devika Dang M.D. 12/03/2016 - 9:55:23 [facility]ly
[2016-12-03] MEDS: ENOXAPARIN 40 MG/0.4 ML SYRINGE SUBCUT SCH (16:19)
--- NOTE | 2016-12-03 16:22 | Event Note ---
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 Patient underwent heart catheterization today. Overall patient reports pain is persistent but improved in his foot. Afebrile overnight with T-max 99.2. Patient is on vancomycin. Vital signs stable; T-max of 99.2 Extremities: Calves soft and nontender without pedal edema appreciated Right lower extremity dressing removed. Packing removed with minimal presenting drainage. There is minimal edema and no hyperemia or erythema appreciated. No malodor. Dorsalis pedis pulses palpable. Remaining toes with brisk capillary refill. Cultures: Proteus, enterococcus, gram-negative rods pending speciation. Sensitivities reviewed. Pathology: Gangrene WBC elevated at 12 Assessment and plan Dressing change at bedside today. Patient had difficulty with pain management. Wound improving. Repeat CBC in the morning. Patient growing enterococcus which is sensitive to vancomycin; also growing Proteus with better sensitivities to cipro - added. Patient states he is having difficulty with mobilization. Will consult PT. May require postop shoe and weightbearing to the heel. Dressing change in a.m.
[2016-12-03] MEDS: CIPROFLOXACIN INJ 400 MG in PREMIX 1 EACH IV SCH (16:38)
--- NOTE | 2016-12-03 17:18 | Hospitalist Progress Note ---
Assessment and Plan (1) Right foot infection Status: Acute Assessment and plan: Status post amputation of the right fourth toe. Continue antibiotics. Cultures with Proteus, enterococcus, and gram-negative rods Current Visit: Yes (2) Peripheral vascular disease Status: Chronic Assessment and plan: Status post amputation of the fourth right toe. Current Visit: Yes (3) Hypertension Status: Chronic Current Visit: Yes Qualifiers: Hypertension type: essential hypertension Qualified Code(s): I10 - Essential (primary) hypertension (4) Cardiomyopathy Status: Acute Assessment and plan: Patient with an abnormal echo and questionable thrombus versus pseudoaneurysm. Cardiology following. Current Visit: Yes Hospitalist: Subjective Interval history: Patient seen and examined. No acute events overnight. Case discussed with nursing staff. Labs reviewed. Patient underwent left heart cath today via right radial wrist approach. No significant CAD or stents placed. 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 He is undergoing wound dressing changes daily by general surgery and should be able to go home tomorrow with oral antibiotics. Exam - Constitutional Vitals: Period Temp Pulse Resp BP Sys/Kimball Pulse Ox Last 24 Hr 98.4 F-99.2 F 79-97 14-22 123-185/76-104 96-100 Exam: Constitutional System: no distress. No tremulousness. Head: Normocephalic, atraumatic. Ears, Nose and Throat System: No pain or tenderness. No epistaxis or discharge Eyes System: Pupils equal, round, and reactive. Extraocular muscles intact. Neck: Supple, without adenopathy, No jugular venous distention. Respiratory System: Chest clear to auscultation. Cardiovascular System: Heart with regular rate and rhythm. No murmur. GI System: Abdomen soft, nontender. Normo active bowel sounds present. Musculoskeletal System: limbs with no pedal edema. Postoperative changes noted in the right lower extremity. Neurological System: No discernable sensory deficit. No aphasia Psychiatric System: Conversation is rational Results - Labs CBC & BMP: 12/03/16 04:39 12/03/16 04:39 Lab Results: I have reviewed the past 24 hour labs
[2016-12-04] MEDS: VANCOMYCIN INJ 1,500 MG in SODIUM CHLORIDE 0.9% 500 ML IV SCH ×2 (01:46→11:38)
[2016-12-04] MEDS: CIPROFLOXACIN INJ 400 MG in PREMIX 1 EACH IV SCH ×2 (04:01→16:30)
[2016-12-04 04:33] LABS: Basophils % 0.2 % (0.0-0.8); Eosinophils # 0.1 10*3/uL (0.0-0.87); Hematocrit 39.8 VOL% (42.0-52.0); Hemoglobin 13.2 GM/DL (14.0-18.0); Immature Granulocytes % 0.6 %; Immature Granulocytes Absolute 0.06 #; Lymphocytes # 2.7 10*3/uL (1.4-4.0); Lymphocytes % 25.8 % (21.2-54.2); Mean Corpuscular HGB Conc 33.2 GM/DL (32-36); Mean Corpuscular Hemoglobin 29 PG (27-34); Mean Corpuscular Volume 86.1 FL (87-102); Mean Platelet Volume 9.7 FL (9.6-12.0); Monocytes # 1.5 10*3/uL (0.11-0.8); Monocytes % 14.4 % (1.7-12.7); Platelet Count 298 T/CUMM (130-400); Red Blood Count 4.62 MC/CUMM (3.8-5.5); Red Cell Distribution Width 12.9 % (9.3-17.3); White Blood Count 10.4 T/CUMM (4-12)
[2016-12-04] MEDS: VALSARTAN 80 MG TABLET PO SCH (09:29)
[2016-12-04] MEDS: PANTOPRAZOLE 40 MG TABLET PO SCH (09:29)
[2016-12-04] MEDS: ASPIRIN EC 325 MG TABLET PO SCH (09:30)
[2016-12-04] MEDS: CARVEDILOL 12.5 MG TABLET PO SCH (09:30)
--- NOTE | 2016-12-04 10:11 | Discharge Summary ---
Hospital Course - Hospital Course Hospital Course: Mr. Grant is a 41 year old male with past medical history significant for hypertension and medical noncompliance presents with a five-day history of fourth toe pain. Patient denies trauma. Patient reports that at times very painful. On admission to the ER patient was found to have an accelerated blood pressure. Patient complains about a numbness sensation in his foot. I was consulted to admit the patient. Both general surgery and cardiology were consulted. Patient had a ray amputation right fourth toe and metatarsal head. Patient also had a left heart cath. There is no significant coronary artery disease no stents. 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 Patient' s met his maximum benefit from this hospitalization we are discharging him home today. He will follow-up with Dr. Rivera the third next week in clinic. Diagnosis - Discharge Diagnosis (1) Necrotic toes Status: Acute (2) Hypertensive urgency Status: Acute (3) Elevated troponin Status: Acute (4) Peripheral vascular disease Status: Chronic Discharge Plan - Discharge Data Disposition: Disch To Home/Self Care Condition at Discharge: Stable Discharge Diet: advance to your usual diet Activity: resume usual activities as tolerated - Discharge Medications New Ciprofloxacin HCl [Ciprofloxacin Tab] 500 mg PO BID #20 tablet HYDROcodone/ACETAMIN 5-325 [[place] 5-325] 1 tablet PO Q6H PRN #30 tablet PRN Reason: Pain Moderate (4-7) NIFEdipine XL TAB [Procardia Xl] 30 mg PO BID #60 tablet Penicillin Vk Tab 250 mg PO Q6HR #40 tablet Aspirin EC Tab 325 mg PO DAILY tablet Carvedilol [Coreg] 12.5 mg PO BID #60 tablet Valsartan [Diovan] 160 mg PO BID #60 tablet - Follow Up or Referral Follow Up: Oziel Wright III., MD [Physician] - 1 Week Home Charles MD [Physician] - 2 Weeks - Forms/Instructions Exam - Constitutional Vitals: Period Temp Pulse Resp BP Sys/Kimball Pulse Ox Last 24 Hr 98.2 F-99.3 F 75-93 18-20 109-161/65-97 93-98 General appearance: normal weight, no acute distress - Head Head exam: Present: normal inspection - Eye Eye exam: Present: EOMI Pupils: Present: CELSO - ENT ENT exam: Present: normal exam - Neck Neck exam: Present: normal inspection - Respiratory Respiratory exam: Present: clear to auscultation bilaterally - Cardiovascular Cardiovascular exam: Present: regular rate and rhythm - GI/Abdominal GI/Abdominal exam: Present: normal bowel sounds - Extremities Exam Extremities exam: Present: other (Patient has dressing at the site of his amputation.) - Back Exam Back exam: Present: normal inspection - Neurological Exam Neurological exam: Present: alert - Psychiatric Psychiatric exam: Present: normal affect Discharge Results Procedures and tests throughout hospitalization: Pending Orders 11/29/16 Abscess Culture Routine Anaerobic Culture Routine 12/03/16 07:46 CL heart Routine 12/04/16 09:18 Vancomycin,Trough Stat Labs on day of discharge: Labs from last 24 hours 12/04/16 12/04/16 03:20 03:20 WBC 10.4 RBC 4.62 Hgb 13.2 L Hct 39.8 L MCV 86.1 L MCH 29 MCHC 33.2 RDW 12.9 Plt Count 298 MPV 9.7 Neut % (Auto) 58.0 Lymph % (Auto) 25.8 [place] % (Auto) 14.4 H Eos % (Auto) 1.0 Baso % (Auto) 0.2 Neut # (Auto) 6.0 Lymph # (Auto) 2.7 [place] # (Auto) 1.5 H Eos # (Auto) 0.1 Baso # (Auto) 0.0 Immature Gran % 0.6 Nucleated RBC % 0.0 Immature Gran # 0.06 Nucleated RBCs # 0.00 Hemoglobin A1c 6.1 Preliminary micro results at discharge 11/29/16 Unknown Abscess Culture - Preliminary Foot - Right Proteus mirabilis Enterococcus faecalis Gram Negative Rods DS: Provider Date of admission: 11/28/16 03:28 Primary care physician: . No PCP Attending physician on admission: Guillermo Kerns MD Consults: 11/28/16 04:03 Consult to Physician [CONS] Routine Comment: increased troponins Consulting Provider: Cardiology - [facility] When should Consulting Provider be notified: In am Person Notified: TAHIR Date Notified: 11/28/16 Time Notified: 09:04 Consult to Physician [CONS] Routine Comment: necrotic toe Consulting Provider: Oziel Wright III. Consult to Specialist Group: Surgery When should Consulting Provider be notified: In am Person Notified: CODY Date Notified: 11/28/16 Time Notified: 09:22 12/03/16 16:28 Consult to Physical Therapy [CONS] Routine Reason for Physical Therapy: Gait Training Consult Comment: assistive device as inidcated Discharging clinician: Guillermo Kerns MD
[2016-12-04] MEDS ORDERED: VANCOMYCIN INJ 1,500 MG in SODIUM CHLORIDE 0.9% 500 ML IV SCH (14:00)
[2016-12-04] MEDS: SODIUM CHLORIDE 0.9% 1,000 ML IV SCH (16:38)
[2016-12-04 20:03] VITALS: BP 145/72
--- NOTE | 2016-12-05 08:45 | Event Note ---
This note is a late entry. I saw the patient on 12/04 prior to discharge. His toe amputation site looked good and we discussed care orders with him and his family. I saw no evidence of continued infection. We have arranged follow-up with me and with Dr. Gil.
== END 2016-12-04 16:50 | disposition home or self-care (01) | DRG 256 ==
LOC: N.ED 23:51 → N.EDINP 11-28 03:28 → SUATTDRO 11-28 03:28 → N.5E 11-28 03:45
PROVIDERS: ADMIT Internal Medicine; ATTEND Internal Medicine
PROC: CLCCHCL (ICD-10-PCS; 2016-12-03 08:15)